=== PATIENT | female | born 1980 | race Caucasian/White ===

== ENCOUNTER 2020-01-09 12:50 | Outpatient (REF) | payer OTHER, SELFPAY ==
--- NOTE | 2020-01-09 13:17 | XR_ITS ---
EXAMINATION: XR SHOULDER, RIGHT CLINICAL INFORMATION: Right shoulder pain COMPARISON: None TECHNIQUE: The right shoulder is imaged in 4 views. FINDINGS: There is no fracture, dislocation, destructive process. There is borderline spur at the greater tuberosity. The glenohumeral joint and acromioclavicular joint are unremarkable. There are no visible rotator cuff calcifications. XR/XR shoulder RT min 2V IMPRESSION: Borderline spurring greater tuberosity. No rotator cuff calcifications.
[2020-01-09 13:46] LABS: Hematocrit 36.8 % (37-47); Hemoglobin 10.8 g/dl (12.0-16.0); Mean Corpuscular HGB Conc 29.3 g/dl (31.0-35.0); Mean Corpuscular Hemoglobin 22.3 pg (27.0-33.0); Mean Platelet Volume 10.6 fL (9.4-12.3); Platelet Count 454 X10*3/uL (160-400); Red Blood Count 4.84 X10*6/uL (4.20-5.50); Red Cell Distribution Width 15.5 % (11.0-16.0)
[2020-01-09 14:08] LABS: Glucose Urine UA NEG (NEG); Leukocyte Esterase Urine NEG (NEG); Nitrite Urine NEG (NEG); Specific Gravity - Urine >= 1.030 (1.005-1.025); Urine Blood 3+ (NEG); Urine Ketones NEG (NEG); Urine Protein NEG (NEG-TRACE)
[2020-01-09 14:10] LABS: Appearance Urine HAZY; Color Urine YELLOW
[2020-01-09 14:23] LABS: Alanine Aminotransferase 35 U/L (0-31); Alkaline Phosphatase 125 U/L (39-117); Anion Gap 13 (12-20); Aspartate Amino Transferase 24 U/L (5-31); Bilirubin Total 0.3 mg/dL (0.0-1.0); Blood Urea Nitrogen 12 mg/dL (9-16); Calcium 9.1 mg/dL (8.4-10.2); Carbon Dioxide 27 mmol/L (22-29); Chloride 105 mmol/L (96-108); Cholesterol 207 mg/dL; Estimated Glomerular Filt Rate > 60; Glucose Random 74 mg/dL (60-115); HDL Cholesterol 46 mg/dL; LDL Cholesterol Calculated 142 mg/dl; Potassium 4.9 mmol/l (3.3-5.1); Sodium 140 mmol/L (135-145); Total Protein 7.3 g/dL (6.5-8.0); Triglycerides 96 mg/dL
[2020-01-09 14:24] LABS: Bacteria Urine 2+ /LPF; Squamous Epithelial Cell Urine 3+ /LPF; WBC Urine 0 /HPF (0-4)
[2020-01-09 14:44] LABS: Thyroid Stimulating Hormone 1.11 uIU/mL (0.32-4.0)
== END 2020-01-09 12:51 | disposition home or self-care (01) ==
LOC: HO.LAB 12:50
PROVIDERS: PCP Internal Medicine; Visit Provider Internal Medicine
DX: Z00.00 Encounter for general adult medical examination without abnormal findings (principal)
CPT/HCPCS: 36415; 73030; 80053; 80061; 81001; 81003; 84443; 85027

== ENCOUNTER 2020-01-23 16:13 | Outpatient (REF) | payer OTHER, SELFPAY | END 2020-01-23 16:14 | disposition home or self-care (01) | LOC: HO.LAB 16:13 | PROVIDERS: PCP Internal Medicine; Visit Provider Internal Medicine | DX: Z20.828 Contact with and (suspected) exposure to other viral communicable diseases (principal) | CPT/HCPCS: C9803; U0003 ==

== ENCOUNTER → 2020-01-29 13:13 | Outpatient (BNVA) | payer OTHER, SELFPAY | PROVIDERS: PCP Internal Medicine; Visit Provider Orthopaedic Surgery | DX: Z76.89 Persons encountering health services in other specified circumstances (principal) ==

== ENCOUNTER 2020-02-06 14:10 | Outpatient (REF) | payer OTHER, SELFPAY | END 2020-02-06 14:11 | disposition home or self-care (01) | LOC: HO.LAB 14:10 | PROVIDERS: Visit Provider Internal Medicine | DX: Z20.828 Contact with and (suspected) exposure to other viral communicable diseases (principal) | CPT/HCPCS: C9803; U0003 ==

== ENCOUNTER 2020-02-18 16:16 | Outpatient (REF) | payer OTHER, SELFPAY ==
--- NOTE | 2020-02-18 | US_ITS ---
EXAMINATION: US RETROPERITONEAL LIMITED (RENAL ONLY) CLINICAL INFORMATION: Microscopic hematuria.. COMPARISON: None TECHNIQUE: Routine grayscale imaging of kidneys was performed. FINDINGS: RIGHT KIDNEY: 10.0 x 5.4 x 5.3 cm (SAG x AP x TRV). The kidney is normal in size, contour, and echogenicity. Renal cortical thickness is normal. No calculi or focal parenchymal lesions. No hydronephrosis. LEFT KIDNEY: 10.6 x 5.0 x 5.7 cm (SAG x AP x TRV). The kidney is normal in size, contour, and echogenicity. Renal cortical thickness is normal. No calculi or focal parenchymal lesions. No hydronephrosis. US/US renal BI IMPRESSION: Unremarkable renal ultrasound..
== END 2020-02-18 16:17 | disposition home or self-care (01) ==
LOC: HO.US 16:16
PROVIDERS: PCP Internal Medicine; Visit Provider Internal Medicine
DX: R31.21 Asymptomatic microscopic hematuria (principal)
CPT/HCPCS: 76775

== ENCOUNTER 2020-11-14 15:23 | Outpatient (REF) | payer OTHER, SELFPAY ==
--- NOTE | ~2020-11-14 | XR_ITS ---
EXAMINATION: XR FOOT, LEFT CLINICAL INFORMATION: Pain in left foot. COMPARISON: None TECHNIQUE: AP, lateral, and oblique views of the left foot. FINDINGS: There is bony prominence of the medial aspect of the navicular bone at site of pain consistent with fused accessory navicular bone. No fracture or other acute abnormality is seen. XR/XR foot LT min 3V IMPRESSION: Bony prominence of the medial aspect of the navicular bone as described.
== END 2020-11-14 15:24 | disposition home or self-care (01) ==
LOC: HO.XRAY 15:23
PROVIDERS: PCP Internal Medicine; Visit Provider Internal Medicine
DX: M79.672 Pain in left foot (principal)
CPT/HCPCS: 73630

== ENCOUNTER 2021-02-17 15:35 | Outpatient (REF) | payer OTHER, SELFPAY ==
--- NOTE | ~2021-02-17 | MM_ITS ---
EXAMINATION: MM SCREENING DIGITAL BREAST TOMOSYNTHESIS, BILATERAL CLINICAL INFORMATION: Screening. Asymptomatic. Age 40. No prior breast imaging. Family history breast cancer. The lifetime risk of breast cancer based on the Tyrer-Cuzick Model is 7%. COMPARISON: None (current study represents initial baseline exam). TECHNIQUE: Digital breast tomosynthesis is performed in both the craniocaudal and mediolateral oblique views along with computer-aided detection (CAD). Synthesized 2D images are generated from the tomosynthesis. Additional left MLO and right CC views are provided. FINDINGS: There are scattered areas of fibroglandular density (ACR BI-RADS breast composition Category b). There is fine fibronodular parenchymal pattern. There is no significant mass or architectural abnormality. Left breast has intramammary node posterior 2:30 position. There is a tiny circumscribed nodule central posterior 9:00 right breast 5 x 4 mm. There are no abnormal calcifications. The axilla and skin contours are unremarkable. MM/MM tomosynthesis screening BI IMPRESSION: No mammographic evidence of malignancy. ASSESSMENT: BI-RADS 2: Benign RECOMMENDATION: Routine annual mammography screening. This patient's information was entered into a reminder system with a target due date for their next mammogram.
== END 2021-02-17 15:36 | disposition home or self-care (01) ==
LOC: HO.MAMMO 15:35
PROVIDERS: Visit Provider Internal Medicine
DX: Z12.31 Encounter for screening mammogram for malignant neoplasm of breast (principal)
CPT/HCPCS: 77063; 77067

== ENCOUNTER 2021-05-12 09:46 | Outpatient (REF) | payer OTHER, SELFPAY ==
--- NOTE | ~2021-05-12 | US_ITS ---
EXAMINATION: US PELVIS CLINICAL INFORMATION: Excessive and frequent menses COMPARISON: None TECHNIQUE: Ultrasound of the pelvis is performed using both transabdominal and transvaginal transducers along with Doppler. Transvaginal imaging is performed due to inadequate visualization transabdominally. Exam is limited due to patient body habitus. FINDINGS: The uterus is anteverted and measures 11.3 x 5.6 x 7.6 cm in dimension. No focal uterine lesion is seen. Endometrial thickness is normal measuring 0.9 cm. There are nabothian cysts in the cervix. The ovaries are seen transabdominally only. The right ovary is normal and measures 3.4 x 1.9 x 2.1 cm. The left ovary is enlarged and measures 5.6 x 3 x 4.6 cm. There is a 2.8 x 3.5 x 2.8 cm simple left ovarian cyst. According to size criteria, no imaging follow-up is indicated. There is no fluid in the pelvis. US/US pelvic complete IMPRESSION: Limited exam. Normal-appearing uterus and right ovary. 2.8 x 3.5 x 2.8 cm simple left ovarian cyst.
== END 2021-05-12 09:47 | disposition home or self-care (01) ==
LOC: HO.HMGCX 09:46
PROVIDERS: PCP Internal Medicine; Visit Provider Advanced Practice Midwife
DX: N92.0 Excessive and frequent menstruation with regular cycle (principal)
CPT/HCPCS: 76856

== ENCOUNTER → 2021-05-15 14:22 | Outpatient (BNVA) | payer OTHER, SELFPAY | PROVIDERS: PCP Internal Medicine; Referring Provider Internal Medicine; Visit Provider Physician Assistant Surgical | DX: Z13.89 Encounter for screening for other disorder (principal) ==

== ENCOUNTER → 2021-05-18 07:47 | Outpatient (BNVA) | payer OTHER, SELFPAY | PROVIDERS: PCP Internal Medicine; Referring Provider Internal Medicine; Visit Provider Physician Assistant | DX: K59.09 Other constipation (principal); K21.9 Gastro-esophageal reflux disease without esophagitis; Z79.899 Other long term (current) drug therapy; Z80.0 Family history of malignant neoplasm of digestive organs | CPT/HCPCS: 99202 ==

== ENCOUNTER 2021-05-22 | Outpatient (REF) | payer OTHER, SELFPAY ==
[2021-05-26 11:12] LABS: H Pylori Breath Test Negative (Negative)
== END 2021-05-22 00:01 | disposition home or self-care (01) ==
LOC: HO.LNP
PROVIDERS: Visit Provider Physician Assistant Surgical
DX: E66.01 Morbid (severe) obesity due to excess calories (principal)
CPT/HCPCS: 83013

== ENCOUNTER → 2021-05-22 12:51 | Outpatient (BNVA) | payer OTHER, SELFPAY | PROVIDERS: PCP Internal Medicine; Referring Provider Internal Medicine; Visit Provider Physician Assistant Surgical | DX: E66.01 Morbid (severe) obesity due to excess calories (principal); Z11.0 Encounter for screening for intestinal infectious diseases; Z68.41 Body mass index [BMI] 40.0-44.9, adult | CPT/HCPCS: 99202; 99211 ==

== ENCOUNTER 2021-05-29 06:47 | Outpatient (REF) | payer OTHER, SELFPAY ==
--- NOTE | ~2021-05-29 | XR_ITS ---
EXAMINATION: XR CHEST CLINICAL INFORMATION: Morbid (severe) obesity due to excess calories. COMPARISON: Chest radiograph 02/15/2017 TECHNIQUE: 2 views of the chest were obtained. FINDINGS: Cardiomediastinal silhouette is normal. The lungs are clear without consolidation, pleural effusion or pneumothorax. Surgical clips in the right upper quadrant. No acute osseous abnormalities. XR/XR chest 2V IMPRESSION: No acute cardiopulmonary process.
--- NOTE | 2021-05-29 06:55 | ECG_ITS ---
Test Reason : PRE OP Blood Pressure : / mmHG Vent. Rate : 063 BPM Atrial Rate : 063 BPM P-R Int : 140 ms QRS Dur : 112 ms QT Int : 422 ms P-R-T Axes : 016 013 046 degrees QTc Int : 431 ms Normal sinus rhythm Minimal voltage criteria for LVH, may be normal variant ( Twan product ) Borderline ECG When compared with ECG of 16-SEP-2015 16:27, No significant change was found Referred By: Russ Villa Electronically Signed By:Obdulio Wick
[2021-05-29 07:18] LABS: MANUAL DIFF FLAG NO
[2021-05-29 08:06] LABS: Basophils Absolute Auto 0.1 X10*3/uL (0.0-0.2); Basophils Percent Auto 0.8 % (0-2); Eosinophils Absolute Auto 0.2 X10*3/uL (0.0-0.4); Eosinophils Percent Auto 3.7 % (0-4); Hematocrit 36.1 % (37.0-47.0); Hemoglobin 10.4 g/dl (12.0-16.0); Imm Gran Abs Auto 0.01 X10*3/uL (0.00-0.03); Imm Gran Pct Auto 0.2 % (0.0-0.4); Lymphocytes Absolute Auto 1.4 X10*3/uL (1.2-4.9); Lymphocytes Percent Auto 23.3 % (20-40); Mean Corpuscular HGB Conc 28.8 g/dl (31.0-35.0); Mean Corpuscular Hemoglobin 19.4 pg (27.0-33.0); Mean Corpuscular Volume 67.4 fL (80.0-98.0); Mean Platelet Volume 10.7 fL (9.4-12.3); Monocytes Absolute Auto 0.5 X10*3/uL (0.1-1.2); Monocytes Percent Auto 8.2 % (2-11); Neutrophils Absolute Auto 3.8 x10*3/uL (2.0-8.3); Neutrophils Percent Auto 63.8 % (45-73); Platelet Count 345 X10*3/uL (160-400); Red Blood Count 5.36 X10*6/uL (4.20-5.50); Red Cell Distribution Width 21.2 % (11.0-16.0)
[2021-05-29 08:13] LABS: Estimated Average Glucose 103 mg/dL; Hemoglobin A1c % 5.2 %
[2021-05-29 08:30] LABS: Anion Gap 13 (12-20); Blood Urea Nitrogen 18 mg/dL (9-16); C Reactive Protein 0.47 mg/dL (< or = 0.50); Calcium 9.4 mg/dL (8.4-10.2); Carbon Dioxide 24 mmol/L (22-29); Chloride 105 mmol/L (96-108); Cholesterol 202 mg/dL; Estimated Glomerular Filt Rate > 60; Glucose Random 96 mg/dL (60-115); HDL Cholesterol 43 mg/dL; Iron 31 mcg/dL (30-160); LDL Cholesterol Calculated 143 mg/dl; Percent Iron Saturation 7 % (15-50); Potassium 4.5 mmol/L (3.3-5.1); Sodium 137 mmol/L (135-145); Total Iron Binding Capacity 441 mcg/dL (228-428); Triglycerides 83 mg/dL; Unsaturated Iron Binding 410 ug/dL
[2021-05-29 08:54] LABS: Ferritin 6 ng/mL (10-250); Insulin 10 uU/mL (2-29); TSH reflex Free T4 0.95 uIU/mL (0.32-4.0); Vitamin D 25-OH Total 22.5 ng/mL (>30)
[2021-05-29 09:09] LABS: Folate 19.1 ng/mL (> or = 4.0); Vitamin B12 526 pg/mL (200-900)
[2021-06-01 13:56] LABS: Calcium (PTHI) 9.3 mg/dL (8.6-10.2); PTHI 51 pg/mL (16-77)
[2021-06-02 16:01] LABS: Zinc 61 mcg/dL (60-130)
[2021-06-03 17:56] LABS: Vitamin A 33 mcg/dL (38-98)
[2021-06-04 17:16] LABS: Vitamin B1 11 nmol/L (8-30)
== END 2021-05-29 06:48 | disposition home or self-care (01) ==
LOC: HO.XRAY 06:47
PROVIDERS: PCP Internal Medicine; Visit Provider Physician Assistant Surgical
DX: Z01.818 Encounter for other preprocedural examination (principal); E66.01 Morbid (severe) obesity due to excess calories
CPT/HCPCS: 36415; 71046; 80048; 80061; 82306; 82607; 82728; 82746; 83036; 83525; 83540; 83970; 84425; 84443; 84590; 84630; 85025; 86140; 93005

== ENCOUNTER → 2021-06-02 14:30 | Outpatient (BNVA) | payer OTHER, SELFPAY | PROVIDERS: PCP Internal Medicine; Visit Provider Counselor Mental Health | DX: F43.20 Adjustment disorder, unspecified (principal); E66.01 Morbid (severe) obesity due to excess calories | CPT/HCPCS: 90791 ==

== ENCOUNTER → 2021-06-12 08:12 | Outpatient (BNVA) | payer OTHER, SELFPAY | PROVIDERS: PCP Internal Medicine; Visit Provider Surgery | DX: Z13.89 Encounter for screening for other disorder (principal) ==

== ENCOUNTER → 2021-06-18 15:36 | Outpatient (BNVA) | payer OTHER, SELFPAY | PROVIDERS: PCP Internal Medicine; Referring Provider Internal Medicine; Visit Provider Dietitian, Registered | DX: E66.9 Obesity, unspecified (principal) | CPT/HCPCS: 97802 ==

== ENCOUNTER → 2021-07-02 08:15 | Outpatient (BNVA) | payer OTHER, SELFPAY | PROVIDERS: PCP Internal Medicine; Referring Provider Surgery; Visit Provider Dietitian, Registered | DX: E66.9 Obesity, unspecified (principal) | CPT/HCPCS: 97803 ==

== ENCOUNTER 2021-07-09 09:59 | Outpatient (REF) | payer OTHER, SELFPAY ==
--- NOTE | ~2021-07-09 | FL_ITS ---
EXAMINATION: XR FLUOROSCOPY UPPER GI WITH AIR CLINICAL INFORMATION: Morbid/severe obesity due to excess calories. COMPARISON: None TECHNIQUE: Routine upper GI contrast study was performed in upright and lying position. FINDINGS: Following oral administration of thick barium and effervescent granules, there is normal propagation of bolus from the oral cavity through the pharynx into the esophagus without any evidence of obstruction, narrowing or stricture. On placing patient supine and prone lying, there is mild gastroesophageal reflux but no hiatal hernia seen. The course, caliber and peristalsis of the stomach, duodenal bulb and the sweep are normal. There is mild flocculation of barium in the antrum of stomach questioning hyperacidity. FLUOROSCOPY TIME: 2.5 minutes DOSE AREA PRODUCT: 38.688 uGy-m2 (microgray-meter squared) FL/FL upper GI w air IMPRESSION: Mild gastroesophageal reflux but no hiatal hernia seen. Suspect mild hyperacidity.
== END 2021-07-09 10:00 | disposition home or self-care (01) ==
LOC: HO.US 09:59
PROVIDERS: Visit Provider Surgery
DX: E66.01 Morbid (severe) obesity due to excess calories (principal)
CPT/HCPCS: 74246

== ENCOUNTER 2021-07-10 13:37 | Outpatient (REF) | payer OTHER, SELFPAY ==
--- NOTE | ~2021-07-10 | US_ITS ---
EXAMINATION: US COMPLETE ABDOMEN WITH LIVER ELASTOGRAPHY CLINICAL INFORMATION: Morbid/severe obesity due to excess calories. COMPARISON: None. TECHNIQUE: Real-time imaging of the abdominal viscera. Noninvasive ultrasound liver fibrosis assessment is performed using Charles ElastPQ point quantification shear wave elastography (2D-SWE) with a C5-2 MHz transducer. Multiple elastography samples are obtained. FINDINGS: PANCREAS: Normal. The visualized pancreatic head and body are normal in appearance. The remainder of the pancreas is obscured from visualization by the overlying bowel gas. ABDOMINAL AORTA: The proximal, middle, and distal aortic segments are normal in caliber. INFERIOR VENA CAVA: Visualized portions are normal. LIVER: Normal. The liver demonstrates normal size, contour and echogenicity. No focal lesion or intrahepatic biliary duct dilatation. The right lobe measures 14.5 cm in length. The left lobe measures 9.8 cm in length. Portal flow is hepatopedal. Shear wave liver elastography median stiffness is 1.50 m/s (reference: normal median stiffness is 1.3 m/s or less). IQR/median stiffness to assess sampling precision is 0.14 (reference: good quality data set is IQR/median stiffness of 0.15 or less). GALLBLADDER: Normal. The gallbladder is physiologically distended without evidence of stones, sludge, polyps, wall thickening or pericholecystic fluid. COMMON BILE DUCT: Normal in caliber measuring 0.3 cm in diameter. RIGHT KIDNEY: Normal. No hydronephrosis. No renal calculi or focal parenchymal lesions. The kidney measures 10.2 cm in maximum dimension. LEFT KIDNEY: Normal. No hydronephrosis. No renal calculi or focal parenchymal lesions. The kidney measures 11.2 cm in maximum dimension. SPLEEN: Normal. The spleen measures 11.6 cm in maximum dimension. FREE FLUID: None. US/US abdomen comp w elastography IMPRESSION: 1. Unremarkable complete abdomen ultrasound. The liver echogenicity is within normal limits. 2. Liver elastography: Median liver stiffness is 1.50 m/s suggestive of cACLD (ruled out). REFERENCE: Society of Radiologists in Ultrasound Liver Stiffness Thresholds (2019): LIVER STIFFNESS THRESHOLDS: *Liver Stiffness equal or less than 1.3 m/s: High probability of being normal. *Liver Stiffness less than 1.7 m/s: In the absence of other known clinical signs, rules out compensated advanced chronic liver disease. *Liver Stiffness 1.7-2.1 m/s: Suggestive of compensated advanced chronic liver disease but need further test for confirmation. *Liver Stiffness over 2.1 m/s: Rules in compensated advanced chronic liver disease. *Liver Stiffness over 2.4 m/s: Suggestive of clinically significant portal hypertension. QUALITY OF DATA SET: *IQR/Median value equal or less than 0.15 implies a quality data set. *IQR/Median value over 0.15 implies a poor quality data set. SIGNIFICANT CHANGE FROM PRIOR EXAM: Significant change if liver stiffness measurement is 10% or greater from prior exam. OTHER CONSIDERATIONS: The stage of liver fibrosis may be overestimated in the setting of acute hepatitis, liver inflammation, elevated liver function tests, hepatic vascular congestion, obstructive cholestasis, non-fasting state, and infiltrative diseases such as amyloidosis and lymphoma. In some patients with NAFLD, the liver stiffness thresholds for compensated advanced chronic liver disease may be lower. In causes other than viral hepatitis and NAFLD, liver stiffness thresholds are not well established.
== END 2021-07-10 13:38 | disposition home or self-care (01) ==
LOC: HO.US 13:37
PROVIDERS: Visit Provider Surgery
DX: Z01.818 Encounter for other preprocedural examination (principal); E66.01 Morbid (severe) obesity due to excess calories
CPT/HCPCS: 76705; 76981

== ENCOUNTER 2021-07-29 14:19 | Outpatient (REF) | payer OTHER, SELFPAY ==
[2021-07-30 02:22] LABS: CT PCR NOT DETECTED (Not Detect.); NG PCR NOT DETECTED (Not Detect.)
[2021-07-30 08:23] LABS: BV Int Neg Control Negative (Negative); BV Int Pos Control Positive (Positive)
== END 2021-07-29 14:20 | disposition home or self-care (01) ==
LOC: HO.LAB 14:19
PROVIDERS: PCP Internal Medicine; Visit Provider Advanced Practice Midwife
DX: N92.0 Excessive and frequent menstruation with regular cycle (principal); R35.0 Frequency of micturition; Z20.2 Contact with and (suspected) exposure to infections with a predominantly sexual mode of transmission
CPT/HCPCS: 58100; 87480; 87491; 87510; 87591; 87660; 88305; 99202

== ENCOUNTER → 2021-09-28 09:24 | Outpatient (BNVA) | payer OTHER, SELFPAY | PROVIDERS: PCP Internal Medicine; Visit Provider Advanced Practice Midwife | DX: Z30.430 Encounter for insertion of intrauterine contraceptive device (principal); Z32.02 Encounter for pregnancy test, result negative | CPT/HCPCS: 58300; 81025; J7298 ==

== ENCOUNTER → 2021-11-18 08:54 | Outpatient (BNVA) | payer OTHER, SELFPAY | PROVIDERS: PCP Internal Medicine; Visit Provider Advanced Practice Midwife | DX: Z30.431 Encounter for routine checking of intrauterine contraceptive device (principal) | CPT/HCPCS: 99212 ==

== ENCOUNTER → 2021-12-24 10:46 | Outpatient (BNVA) | payer OTHER, SELFPAY | PROVIDERS: PCP Internal Medicine; Visit Provider Physician Assistant | DX: K21.9 Gastro-esophageal reflux disease without esophagitis (principal); K59.09 Other constipation; Z80.0 Family history of malignant neoplasm of digestive organs | CPT/HCPCS: 99212 ==

== ENCOUNTER 2022-01-28 06:14 | Day surgery (SDC) | payer OTHER, SELFPAY ==
--- NOTE | 2021-12-23 07:59 | PC.NURSE ---
Patient originally called to see if she could fill in a cancellation spot but patient stated that liquid I had to drink, I got bumps all over my lips and face and body. I started drinking it at 6pm and by 630 they were all over. RN ensured she stopped taking solution and took intervention. Patient stated yes when I saw the bumps I stopped it and threw the rest away and took Benadryl. Offered patient to come in just for EGD and to have colon scheduled for another day, patient preference to reschedule both procedures at same time. Patient given office number to reschedule and advised to tell them about allergic reaction to prep so she can be given something else.
[2022-01-22 10:41] VITALS: BMI 42.9
--- NOTE | 2022-01-27 12:45 | HO.ANESPROP2 ---
Documented by User: Saida Wright NP 01/27/22 12:50 HPI - Anesthesia Eval Consult details Narrative: 41yo F for Upper Endoscopy and Colonoscopy PMFSH Active Problems Active Problems: All Active Problems (Updated 01/22/22 @ 10:41 by Silvana Burroughs RN) Asthma (Acute) Rotator cuff impingement syndrome of right shoulder (Acute) Chronic constipation (Acute) Acid reflux (Acute) Family history of colon cancer (Acute) Obesity (BMI 30-39.9) (Acute) Morbid obesity (Acute) Adjustment disorder, unspecified (Acute) Past Medical History Medical History Anemia Asthma History of kidney stones Hypertension Family History Family History Mother Colon cancer, Onset Age: 45 Father Diabetes Hypertension Son No problems noted. Son Asthma Daughter No problems noted. Surgical History Surgical History History of Hx laparoscopic cholecystectomy Hx of colonoscopy Social History Social History Alcohol intake: never Patient Tobacco Use Status: Never used Tobacco Are you DNR?: No Advance Directives: No Advance Directives Information Provided: Yes (brochure mailed) Advance Directives on File: No Recently lost weight without trying: No Eating poorly because of decreased appetite: No Nutrition Risks: No Nutritional Risk Patient : No Current occupational status: employed Current occupation: [employer] Sexual orientation: Straight/Heterosexual Gender identity: Female Meds Allergies Allergy/AdvReac Type Severity Reaction Status Date / Time polyethylene glycol 3350 Allergy Intermediate Hives Verified 01/28/22 06:25 shellfish derived Allergy Intermediate Swelling Verified 01/28/22 06:25 Home Medications Medication Instructions Recorded Confirmed Last Taken Type albuterol sulfate 90 mcg/actuation 2 puff PO QID PRN Wheezing 05/15/21 01/22/22 Unknown History aerosol inhaler (Ventolin HFA) diclofenac sodium 1 % topical gel 2 g topical BID 05/15/21 01/22/22 Unknown History fluticasone propionate 110 2 puff inhalation BID 05/15/21 01/22/22 Unknown History mcg/actuation HFA aerosol inhaler (Flovent HFA) fluoxetine 10 mg capsule 10 mg PO DAILY 05/18/21 01/22/22 Unknown History naproxen 500 mg tablet 500 mg PO BID PRN Pain 05/18/21 01/22/22 Unknown History levonorgestrel 20 mcg/24 hours (8 intrauterine DAILY 11/18/21 Unknown History yrs) 52 mg intrauterine device (Mirena) Exam Exam Date and Time: January 27, 2022 1245 Height,Weight and Vital Signs: Height 5 ft 1 in Weight 102.965 kg Narrative Narrative: EKG 05/2021 Vent. Rate : 063 BPM ? ? Atrial Rate : 063 BPM ?? P-R Int : 140 ms? QRS Dur : 112 ms ? ? QT Int : 422 ms ? ? ? P-R-T Axes : 016 013 046 degrees ?? QTc Int : 431 ms ? Normal sinus rhythm Minimal voltage criteria for LVH, may be normal variant ( Twan product ) Borderline ECG When compared with ECG of 16-SEP-2015 16:27, No significant change was found Assessment and Plan Assessment Anesthesia Assessment: Chart Reviewed Documented by User: Cintia Solis MD 01/28/22 07:18 [facility] Past Medical History Medical History Anemia Asthma History of kidney stones Hypertension Family History Family History Mother Colon cancer, Onset Age: 45 Father Diabetes Hypertension Son No problems noted. Son Asthma Daughter No problems noted. Family history of problems with anesthesia: No Surgical History Surgical History History of Hx laparoscopic cholecystectomy Hx of colonoscopy History of Problems with Anesthesia: No Social History Social History Alcohol intake: never Patient Tobacco Use Status: Never used Tobacco Are you DNR?: No Advance Directives: No Advance Directives Information Provided: Yes (brochure mailed) Advance Directives on File: No Recently lost weight without trying: No Eating poorly because of decreased appetite: No Nutrition Risks: No Nutritional Risk Patient : No Current occupational status: employed Current occupation: [employer] Sexual orientation: Straight/Heterosexual Gender identity: Female Meds Allergies Allergy/AdvReac Type Severity Reaction Status Date / Time polyethylene glycol 3350 Allergy Intermediate Hives Verified 01/28/22 06:25 shellfish derived Allergy Intermediate Swelling Verified 01/28/22 06:25 Home Medications Medication Instructions Recorded Confirmed Last Taken Type albuterol sulfate 90 mcg/actuation 2 puff PO QID PRN Wheezing 05/15/21 01/22/22 Unknown History aerosol inhaler (Ventolin HFA) diclofenac sodium 1 % topical gel 2 g topical BID 05/15/21 01/22/22 Unknown History fluticasone propionate 110 2 puff inhalation BID 05/15/21 01/22/22 Unknown History mcg/actuation HFA aerosol inhaler (Flovent HFA) fluoxetine 10 mg capsule 10 mg PO DAILY 05/18/21 01/22/22 Unknown History naproxen 500 mg tablet 500 mg PO BID PRN Pain 05/18/21 01/22/22 Unknown History levonorgestrel 20 mcg/24 hours (8 intrauterine DAILY 11/18/21 Unknown History yrs) 52 mg intrauterine device (Mirena) Exam Airway Mallampati Class: II TM Dist: >3cm Neck ROM: Full Loose/Missing/Broken Teeth: Yes and Lower Heart: rr Lungs: cta Assessment and Plan Assessment Anesthesia Assessment: Anesthesia Plan Discussed Final Anesthetic Review Family History of Problems with Anesthesia: No History of Problems with Anesthesia: No ASA Class: II Final Preanesthetic Review: No Changes in Pt Med Stat Patient Risk: Low Procedure Risk: Low Anesthetic Plan Anesthetic Plan: MAC: Disposition: Standard PACU
--- NOTE | 2022-01-28 06:16 | MHC.SHP ---
Pre-Procedural Eval Section A Date of Service: 01/28/22 Section B Chief Complaint: constipation,reflux disease,hx malignant neoplasm Relevant Family History (Specify if Yes): Yes Relevant Social History: None Present Medications: see Short Stay Collaborative assessment Medical History: Significant History (Anemia Asthma History of kidney stones Hypertension) History of Previous Operations: Relevant previous surgery/procedure and date(s) (Hx laparoscopic cholecystectomy Hx of colonoscopy) Allergies: Allergies Allergy/AdvReac Type Severity Reaction Status Date / Time polyethylene glycol 3350 Allergy Intermediate Hives Verified 01/22/22 10:32 shellfish derived Allergy Intermediate Swelling Verified 01/22/22 10:31 Review of Systems Sugical H&P ROS: Negative: Constitution, Cardiovascular, Respiratory, Neurological, Psychiatric, Hem-Onc, Allergic/Immunologic, Gastrointestinal, Genitourinary, Musculoskeletal, Integumentary, Endocrine and Eyes/Ears/Nose/Throat Exam Surgical H&P Exam: Normal: HEENT, Normal: Heart, Normal: Lungs, Normal: Extremities, Normal: Abdomen, Normal: Skin and Normal: Neurological Plan Diagnosis/Plan: Unchanged I have reviewed the history and physical and performed a pertinent physical examination on my patient. No changes have occurred unless specified. Time Spent With Patient Time: Total time managing care of this patient today ____ minutes.
[2022-01-28] MEDS: Lactated Ringers 1,000 ML 100 ML IVCONT (06:40)
[2022-01-28 06:47] VITALS: BP 127/79; PULSE 77; RESP 18; TEMP 36.3; O2SAT 96
[2022-01-28 07:11] LABS: UPreg QC Valid YES; Urine Pregnancy NEGATIVE (NEGATIVE)
--- NOTE | 2022-01-28 08:17 | P.OP_ITS ---
Operative Note Operative Note Date of Service: 01/28/22 Narrative: Operative Information Procedure Description: EGD, Colonoscopy Indication: epigastric pain, FH of CRC in mother, constipation Anesthesia: MAC FLEXIBLE TRANSORAL UPPER GASTROINTESTINAL ENDOSCOPY AND COLONOSCOPY PROCEDURE NOTE UPPER ENDOSCOPY Consent: Indications for the procedure and potential complications of bleeding, perforation, reaction to medications and missed diagnosis were discussed with the patient and informed consent was obtained. Instrument: Olympus GIF H 190 J mid size upper endoscope Monitoring: Vital signs and clinical assessment, continuous EKG monitoring, Pulse oximetry, Carbon Dioxide monitoring and blood pressure monitoring were done throughout the procedure. Procedure: The patient was placed in the left lateral decubitis position and pre-procedure medications were administered and a bite block was placed. The endoscope was inserted into the mouth and advanced under direct vision to the third part of duodenum. A careful inspection was made as the upper endoscope was withdrawn including a retroflexed examination of the proximal stomach; Findings and interventions are described below. Findings: Larynx:normal Esophagus: GE junction at 40 cm, diaphragm hiatus at 40 cm, bogginess and erythema at GEJ, bx taken as well as from distal and proximal esophagus Stomach: mild gastritis. Biopsies were obtained. Grade 2 flap valve on retroflexed examination of the cardia. 10 mm polyp in proximal stomach, looked like a fundic gland polyp removed with cold forceps Duodenum: Erosive duodenitis with nodularity and erythema Intervention: Biopsies as noted above COLONOSCOPY Instrument: Olympus variable stiffness pediatric scope 190L Colonoscopy Monitoring: Vital signs and clinical assessment, continuous EKG monitoring, Pulse oximetry, Carbon Dioxide monitoring and blood pressure monitoring were done throughout the procedure. Colon withdrawal time was 8 minutes. Procedure: The patient was placed in the left lateral decubitis position and pre-procedure medications were administered. After a digital rectal examination of the ano-rectum, the video colonoscope was inserted into the rectum and advanced through the colon to the cecum/TI. The colonoscope was slowly withdrawn in a retrograde panoramic fashion and the colon mucosa was carefully examined including a retroflexed view of the rectum. Findings and interventions are described below. Procedure Difficulty: easy Findings: Terminal Ileum-normal Cecum:normal Ascending Colon: normal Transverse Colon -normal Descending Colon:normal Sigmoid Colon: mild diverticulosis Rectum: Retroflexion with small internal hemorrhoids, grade I Anorectum - normal Colon preparation: [place] Bowel Preparation Scale Right colon; 2 Transverse colon: 2 Left colon; 2 (0 = Unprepared colon segment with mucosa not seen due to solid stool that cannot be cleared. 1 = Portion of mucosa of the colon segment seen, but other areas of the colon segment not well seen due to staining, residual stool and/or opaque liquid. 2 = Minor amount of residual staining, small fragments of stool and/or opaque liquid, but mucosa of colon segment seen well. 3 = Entire mucosa of colon segment seen well with no residual staining, small fragments of stool or opaque liquid) Impression and Post Procedure Diagnosis: Endoscopy Findings: esophagitis erosive duodenitis gastritis Colonoscopy Findings: internal hemorrhoids diverticular disease Plan: Await Pathology results Repeat Colonoscopy in 5 years due to FH of CRC or earlier if clinically indicated, she did well with MOM prep can use same next time High fiber diet leaflet avoid straining at stool, epsom salts and sitz bath, anusol supps or cream check nsaid hx if h pylori pos then treat check if taking PPI -if not may benefit Above findings were reviewed with the patient and relevant handouts were provided if indicated.
[2022-01-28 08:25] VITALS: BP 108/67; PULSE 83; RESP 14; TEMP 36.4; O2SAT 99
[2022-01-28 08:45] VITALS: BP 132/76; PULSE 74; RESP 18; TEMP 36.1; O2SAT 100
== END 2022-01-28 09:54 ==
LOC: HO.SSS 06:14
PROVIDERS: Nurse Practitioner; PCP Internal Medicine; Visit Provider Internal Medicine Gastroenterology
PROC: (CPT 45378; principal; 2022-01-28 07:30)
DX: K59.09 Other constipation (principal); Z80.0 Family history of malignant neoplasm of digestive organs; K57.30 Diverticulosis of large intestine without perforation or abscess without bleeding; K64.0 First degree hemorrhoids; R10.13 Epigastric pain; K21.9 Gastro-esophageal reflux disease without esophagitis; K20.80 Other esophagitis without bleeding; K29.50 Unspecified chronic gastritis without bleeding; K29.80 Duodenitis without bleeding; K31.7 Polyp of stomach and duodenum; K44.9 Diaphragmatic hernia without obstruction or gangrene; D64.9 Anemia, unspecified; I10 Essential (primary) hypertension; J45.909 Unspecified asthma, uncomplicated; E66.01 Morbid (severe) obesity due to excess calories; Z68.41 Body mass index [BMI] 40.0-44.9, adult; Z90.49 Acquired absence of other specified parts of digestive tract; Z87.442 Personal history of urinary calculi; Z88.8 Allergy status to other drugs, medicaments and biological substances
CPT/HCPCS: 45378; 43239; 81025; 88305; 88342

== ENCOUNTER 2022-02-23 14:52 | Outpatient (REF) | payer OTHER, SELFPAY ==
--- NOTE | ~2022-02-23 | MM_ITS ---
EXAMINATION: MM SCREENING DIGITAL BREAST TOMOSYNTHESIS, BILATERAL CLINICAL INFORMATION: Screening. Asymptomatic. The lifetime risk of breast cancer based on the Tyrer-Cuzick Model is 8%. COMPARISON: Mammography: 02/17/2021 (baseline) TECHNIQUE: Digital breast tomosynthesis is performed in both the craniocaudal and mediolateral oblique views along with computer-aided detection (CAD). Synthesized 2D images are generated from the tomosynthesis. Additional bilateral CC views are provided. FINDINGS: There are scattered areas of fibroglandular density (ACR BI-RADS breast composition Category b). Fine fibronodular parenchymal pattern is similar to baseline exam. There is no significant mass. No architectural abnormality or abnormal calcifications. Intramammary nodes again noted posterior upper outer left breast. The axilla and skin contours are unremarkable. MM/MM tomosynthesis screening BI IMPRESSION: No mammographic evidence of malignancy. ASSESSMENT: BI-RADS 2: Benign RECOMMENDATION: Routine annual mammography screening. This patient's information was entered into a reminder system with a target due date for their next mammogram.
== END 2022-02-23 14:53 | disposition home or self-care (01) ==
LOC: HO.MAMMO 14:52
PROVIDERS: PCP Internal Medicine; Visit Provider Internal Medicine
DX: Z12.31 Encounter for screening mammogram for malignant neoplasm of breast (principal)
CPT/HCPCS: 77063; 77067

== ENCOUNTER → 2022-06-10 13:47 | Outpatient (BNVA) | payer OTHER, SELFPAY | PROVIDERS: PCP Internal Medicine; Visit Provider Advanced Practice Midwife | DX: Z13.89 Encounter for screening for other disorder (principal) ==

== ENCOUNTER 2023-04-30 07:55 | Outpatient (REF) | payer OTHER, SELFPAY | END 2023-04-30 07:56 | disposition home or self-care (01) | LOC: HO.MAMMO 07:55 | PROVIDERS: PCP Internal Medicine; Visit Provider Internal Medicine | DX: Z12.31 Encounter for screening mammogram for malignant neoplasm of breast (principal) | CPT/HCPCS: 77063; 77067 ==

== ENCOUNTER → 2023-04-30 08:00 | Outpatient (BNV) | payer OTHER, SELFPAY | PROVIDERS: PCP Internal Medicine; Visit Provider Radiology Diagnostic Radiology | DX: Z12.31 Encounter for screening mammogram for malignant neoplasm of breast (principal) | CPT/HCPCS: 77063; 77067 ==

== ENCOUNTER 2023-05-16 16:27 | Outpatient (REF) | payer OTHER, SELFPAY ==
[2023-05-16 17:54] LABS: Appearance Urine Clear; Color Urine Yellow; Glucose Urine UA Negative (Negative); Leukocyte Esterase Urine Negative (Negative); Nitrite Urine Negative (Negative); PH 6.5 (5.0-9.0); Specific Gravity - Urine 1.025 (1.005-1.025); UMIC TRIGGER UA YES; Urine Blood Trace (Negative); Urine Ketones Negative (Negative); Urine Protein Negative (Neg-Trace)
[2023-05-16 17:58] LABS: Bacteria Urine Trace (None Seen); Hyaline Casts Urine 0-2 /LPF (0-2); WBC Urine 0-5 /HPF (0-5)
== END 2023-05-16 16:28 | disposition home or self-care (01) ==
LOC: HO.CHCLNP 16:27
PROVIDERS: Visit Provider Internal Medicine
DX: R10.9 Unspecified abdominal pain (principal)
CPT/HCPCS: 81001

== ENCOUNTER 2023-05-20 13:53 | Outpatient (REF) | payer OTHER, SELFPAY ==
--- NOTE | ~2023-05-20 | US_ITS ---
EXAMINATION: US RETROPERITONEAL LIMITED (RENAL ONLY) CLINICAL INFORMATION: Left flank pain. COMPARISON: Ultrasound abdomen complete 07/10/2021. Renal ultrasound 02/18/2020. TECHNIQUE: Real-time imaging of the kidneys. FINDINGS: RIGHT KIDNEY: 10.0 x 5.4 x 5.6 cm (SAG x AP x TRV). The kidney is normal in size, contour, and echogenicity. Renal cortical thickness is normal. No calculi or focal parenchymal lesions. No hydronephrosis. LEFT KIDNEY: 10.6 x 5.5 x 5.3 cm (SAG x AP x TRV). The kidney is normal in size, contour, and echogenicity. Renal cortical thickness is normal. No definite calculi or focal parenchymal lesions. There are a few echogenic foci most likely related to vascular interfaces rather than shadowing calculi. No hydronephrosis. US/US renal BI IMPRESSION: Normal-appearing kidneys.
== END 2023-05-20 13:54 | disposition home or self-care (01) ==
LOC: HO.HMGCX 13:53
PROVIDERS: PCP Internal Medicine; Visit Provider Internal Medicine
DX: R10.9 Unspecified abdominal pain (principal); R31.29 Other microscopic hematuria
CPT/HCPCS: 76775

== ENCOUNTER 2023-06-23 09:58 | Outpatient (AMB) | payer OTHER, SELFPAY ==
--- NOTE | 2023-06-23 10:14 | MHC.OFFVIS ---
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 Doing well with no concerns. She tries to eat healthy and stays active with some exercise. Regular monthly menses x4 days currently has a Mirena IUD in place for cycle control, inserted in 2021. Currently is sexually active. She denies vaginal itching and irritation. STI screening offered; she declines. Denies family history of breast or ovarian. FH colon cancer-mom. UTD w/colonscopy. Last pap smear 2021, negative. Mammogram: 2023. COUNTS INCLUDE 234 BEDS AT THE [facility] Medical History (Updated 06/23/23 @ 11:46 by Claudia Alcocer CNM) Hypertension Asthma History of kidney stones Anemia Surgical History (Updated 06/23/23 @ 10:29 by Claudia Alcocer CNM) History of bilateral tubal ligation History of esophagogastroduodenoscopy (EGD) Hx laparoscopic cholecystectomy Hx of colonoscopy History of Family History Mother Colon cancer, Onset Age: 45 Father Diabetes Hypertension Son No problems noted. Son Asthma Daughter No problems noted. 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[employer] Sexual orientation: Straight/Heterosexual Gender identity: Female Female Reproductive History Menstrual Age of Menarche: 9 control method: progestin IUCD Total pregnancies: 3 Full term: 3 Number of Living Children: 3 Date of last pap smear: 04/21/21 (negative) Date of Mammogram: 04/30/23 Review of Systems Const All systems reviewed & are unremarkable except as noted in HPI and below Reports as per HPI Eyes Reports no additional complaints ENT Reports no additional complaints Card Reports no additional complaints Resp Reports no additional complaints GI Reports as per HPI and Reports no additional complaints Reports as per HPI Musc Reports no additional complaints Skin/Breast Reports as per HPI Neuro Reports no additional complaints Psych Reports no additional complaints Endo Reports no additional complaints Mario/Lymph Reports no additional complaints Aller/Immun Reports no additional complaints Physical Exam Vital Signs: Last Vital Signs BP 122/70 06/23/23 10:15 BMI result Body Mass Index 47.2 Const General: cooperative, healthy appearing, no acute distress, well developed and alert Orientation/consciousness: patient oriented x3 HEENT Head: Yes normal to inspection Eyes General: appearance normal, both eyes and all related structures Neck Neck: Yes normal visual inspection Thyroid: Thyroid normal Chest Chest palpation & inspection: normal inspection of the chest and other (no puckering, dimpling, peau de orange, retraction, discharge, masses) Breast/axilla inspection: normal inspection of the breasts Breast/axilla palpation: normal palpation of the breasts Resp Effort & Inspection: normal respiratory effort GI Inspection: Yes normal to inspection Palpation (GI): Soft to palpation Rectal Exam - Female: deferred General: Yes bladder normal to palpation External Female Exam: normal external appearance and normal appearance of the urethra Speculum Exam - Vagina: normal appearance of the vagina, normal palpation, normal vaginal discharge and vaginal bleeding Speculum Exam - Cervix: normal appearance of the cervix and normal palpation Bimanual exam- vagina & uterus: normal bimanual exam, normal palpation, uterine size normal, bladder normal to palpation, normal palpation and non-tender Bimanual Exam- Adnexa, other: no masses OB/external & speculum: vaginal bleeding Skin General skin exam: no rashes or lesions noted Rashes: no rashes Neuro General: patient oriented x3 Cognition (Neuro): normal cognition Extrem General: Yes normal to inspection Psych Attitude: cooperative Thought process: Normal thought process present Assessment & Plan Assessment & Plan (1) Encounter for well woman exam with routine gynecological exam: Code(s): Z01.419 - Encounter for gynecological examination (general) (routine) without abnormal findings Category: Medical (2) IUD strings lost: Code(s): T83.32XA - Displacement of intrauterine contraceptive device, initial encounter Category: Medical Qualifiers: Encounter type: initial encounter Qualified Code(s): T83.32XA - Displacement of intrauterine contraceptive device, initial encounter Plan Discussed: Current recommendations for pap smears per ASCCP guidelines. Breast awareness and periodic breast exams. Maintain a healthy lifestyle including a well balanced diet and routine exercise. Ultrasound to check IUD positioning, follow up in office for results. Mammogram yearly. Colonoscopy >45, or at risk sooner. Patient verbalizes understanding and agrees to the plan of care. She was given opportunity to ask questions and all questions were answered to the best of my ability. RTO in one year for annual slip laster examination. This note is constructed using voice recognition software. While every effort has been made to ensure accuracy, taping supervisor errors may have been included. Orders: Orders US pelvic and transvaginal Today T83.32XA - Displacement of intrauterine contraceptive device, initial encounter Coding Level of Care Code Est Pt Prev Care 40-64y(24397) Diagnoses Encounter for well woman exam with routine gynecological exam Z01.419 Intrauterine contraceptive device threads lost, initial encounter T83.32XA Encounter type: initial encounter
[2023-06-23 10:15] VITALS: BP 122/70; BMI 47.2
== END 2023-06-23 10:47 | disposition home or self-care (01) ==
PROVIDERS: PCP Internal Medicine; Visit Provider Advanced Practice Midwife
DX: Z01.419 Encounter for gynecological examination (general) (routine) without abnormal findings (principal); T83.32XA Displacement of intrauterine contraceptive device, initial encounter
CPT/HCPCS: 99396

== ENCOUNTER → 2023-06-23 09:58 | Outpatient (BNVA) | payer OTHER, SELFPAY | PROVIDERS: PCP Internal Medicine; Visit Provider Advanced Practice Midwife ==

== ENCOUNTER 2023-07-08 15:19 | Outpatient (REF) | payer OTHER, SELFPAY ==
--- NOTE | ~2023-07-08 | US_ITS ---
EXAMINATION: US PELVIS CLINICAL INFORMATION: Displacement of intrauterine contraceptive device, initial encounter Pelvic ultrasound 05/12/2021 COMPARISON: None available. TECHNIQUE: Ultrasound of the pelvis is performed using both transabdominal and transvaginal transducers along with Doppler. Transvaginal imaging is performed due to inadequate visualization transabdominally. Technically difficult study due to body habitus and fluid within the cervix. FINDINGS: Uterus: The uterus is anteverted and measures 10.6 x 5.9 x 6.1 cm. No focal fibroid. The IUD appears in appropriate position. It was technically difficult to visualize due to body habitus and fluid within the cervix. Adnexa: Both ovaries are visualized. There is normal color flow to the adnexa. There is no ovarian torsion. There is no pelvic ascites or fluid collection. Right ovary measures 2.9 x 3.0 x 3.0 cm. Volume 13.7 mL. Left ovary measures 2.3 x 2.3 x 2.0 cm. Volume 5.4 mL. US/US pelvic and transvaginal IMPRESSION: 1. The IUD appears in appropriate position. It was technically difficult to visualize due to body habitus and fluid within the cervix. 2. The right ovary is mildly enlarged with no focal abnormality. 3. Normal left ovary.
== END 2023-07-08 15:20 | disposition home or self-care (01) ==
LOC: HO.US 15:19
PROVIDERS: PCP Internal Medicine; Visit Provider Advanced Practice Midwife
DX: T83.32XA Displacement of intrauterine contraceptive device, initial encounter (principal)
CPT/HCPCS: 76830; 76856

== ENCOUNTER 2023-11-08 13:24 | Outpatient (AMB) | payer OTHER, SELFPAY ==
--- NOTE | 2023-11-08 13:27 | A.OFFVIS_ITS ---
Intake Visit Reasons: ultra sound follow up Bilingual Office Assistant: Bilingual Office Assistant Present Allergies polyethylene glycol 3350 Allergy (Intermediate, Verified 11/08/23 13:27) Hives shellfish derived Allergy (Intermediate, Verified 11/08/23 13:27) Swelling Is last menstrual period known: Yes HPI Comments Details: Patient is here today for a follow up ultrasound results. History of IUD strings missing, and lower right pelvic pain over the last few months. PFSH Medical History (Updated 11/08/23 @ 13:49 by Claudia Alcocer CNM) IUD strings lost Hypertension Asthma History of kidney stones Anemia Surgical History (Updated 06/23/23 @ 10:29 by Claudia Alcocer CNM) History of bilateral tubal ligation History of esophagogastroduodenoscopy (EGD) Hx laparoscopic cholecystectomy Hx of colonoscopy History of Family History Mother Colon cancer, Onset Age: 45 Father Diabetes Hypertension Son No problems noted. Son Asthma Daughter No problems noted. 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[employer] Sexual orientation: Straight/Heterosexual Gender identity: Female Female Reproductive History Menstrual Age of Menarche: 9 Review of Systems Const All systems reviewed & are unremarkable except as noted in HPI and below Endo Reports no additional complaints Physical Exam Const General: cooperative, healthy appearing and no acute distress Psych Appearance: well kempt Attitude: cooperative Thought process: Normal thought process present Results Reviewed Results Reviewed: [address] [address] Ultrasound Report Signed Patient: Roselyn Davis MR#: [id number] : 1980 Acct:[id number] Age/Sex: 43 / F ADM Date: 07/08/23 Loc: HO.US Attending Dr: Claudia Alcocer CNM Ordering Physician: Claudia Alcocer CNM Date of Service: 07/08/23 Procedure(s): US pelvic and transvaginal Accession Number(s): [id number] cc: Logan Polanco MD; Claudia Alcocer CNM~ EXAMINATION: US PELVIS CLINICAL INFORMATION: Displacement of intrauterine contraceptive device, initial encounter Pelvic ultrasound 05/12/2021 COMPARISON: None available. TECHNIQUE: Ultrasound of the pelvis is performed using both transabdominal and transvaginal transducers along with Doppler. Transvaginal imaging is performed due to inadequate visualization transabdominally. Technically difficult study due to body habitus and fluid within the cervix. FINDINGS: Uterus: The uterus is anteverted and measures 10.6 x 5.9 x 6.1 cm. No focal fibroid. The IUD appears in appropriate position. It was technically difficult to visualize due to body habitus and fluid within the cervix. Adnexa: Both ovaries are visualized. There is normal color flow to the adnexa. There is no ovarian torsion. There is no pelvic ascites or fluid collection. Right ovary measures 2.9 x 3.0 x 3.0 cm. Volume 13.7 mL. Left ovary measures 2.3 x 2.3 x 2.0 cm. Volume 5.4 mL. US/US pelvic and transvaginal IMPRESSION: 1. The IUD appears in appropriate position. It was technically difficult to visualize due to body habitus and fluid within the cervix. 2. The right ovary is mildly enlarged with no focal abnormality. 3. Normal left ovary. Dictated By: Ruby Thurston MD Signed By: <Electronically signed by Ruby Thurston MD in OV> 07/21/23 1127 DD/ 1534 TD/TT: Director Cardiac: Assessment & Plan Assessment & Plan (1) Ovarian enlargement, right: Code(s): N83.8 - Other noninflammatory disorders of ovary, fallopian tube and broad ligament Category: Medical (2) Encounter to discuss test results: Code(s): Z71.2 - Person consulting for explanation of examination or test findings Plan Discussed: Ultrasound findings -overall volume of right ovary enlarged, no cyst or mass noted. IUD is properly positioned in the uterus. Plan follow-up in 3 months to recheck the ovary. Counseled regarding pelvic pain, if any increase in pelvic pain on the right side to call the office for a sooner evaluation. All of her questions and concerns were addressed to the best of my ability and shared de cision making. She is agreeable to the plan of care. This note is constructed using voice recognition software. While every effort has been made to ensure accuracy, boilermaker ship errors may have been included. Orders: Orders US pelvic and transvaginal 12/26/23 N83.8 - Other noninflammatory disorders of ovary, fallopian tube and broad ligament Coding Level of Care Code Est Pt Level 3 (30764) Diagnoses Ovarian enlargement, right N83.8 Encounter to discuss test results Z71.2
== END 2023-11-08 14:52 | disposition home or self-care (01) ==
PROVIDERS: PCP Internal Medicine; Visit Provider Advanced Practice Midwife
DX: N83.8 Other noninflammatory disorders of ovary, fallopian tube and broad ligament (principal); Z71.2 Person consulting for explanation of examination or test findings
CPT/HCPCS: 99213

== ENCOUNTER → 2023-11-08 13:25 | Outpatient (BNVA) | payer OTHER, SELFPAY | PROVIDERS: PCP Internal Medicine; Visit Provider Advanced Practice Midwife ==

== ENCOUNTER 2023-12-19 15:19 | Outpatient (REF) | payer OTHER, SELFPAY | END 2023-12-19 15:20 | disposition home or self-care (01) | LOC: HO.US 15:19 | PROVIDERS: PCP Internal Medicine; Visit Provider Advanced Practice Midwife | DX: N83.8 Other noninflammatory disorders of ovary, fallopian tube and broad ligament (principal) | CPT/HCPCS: 76830; 76856 ==

== ENCOUNTER 2024-02-02 10:37 | Outpatient (REF) | payer OTHER, SELFPAY ==
--- NOTE | ~2024-02-02 | XR_ITS ---
EXAMINATION: XR FOOT, RIGHT CLINICAL INFORMATION: Bilateral feet pain COMPARISON: None available. TECHNIQUE: AP, lateral, and oblique views of the right foot. FINDINGS: Minimal degenerative osteoarthritic changes of the first metatarsophalangeal joint. Very small inferior calcaneal spur. The bones and soft tissues are normal. No fracture. Alignment is anatomic. Joint spaces are maintained. XR/XR foot RT min 3V IMPRESSION: 1. No fracture. 2. Mild DJD. 3. Very small inferior calcaneal spur. Electronically signed by: Richard Cevallos MD 02/04/2024 11:56 AM TITA
--- NOTE | ~2024-02-02 | XR_ITS ---
EXAMINATION: XR SHOULDER 2 OR MORE VIEWS LEFT CLINICAL INFORMATION: left shoulder pain COMPARISON: None available at the time of this dictation. TECHNIQUE: AP external rotation, Grashey, scapular Y, and oblique views of the shoulder. Total of 4 views FINDINGS: BONES: There is no fracture or dislocation, no osteolytic or osteoblastic lesion. JOINTS: Glenohumeral joint is properly positioned. AC joint is normal. SOFT TISSUE AND INCLUDED LUNG: Normal. XR/XR shoulder LT min 2V IMPRESSION: 1. Normal radiograph. No fracture or dislocation. 2. Bone alignments are satisfactory. Electronically signed by: Richard Cevallos MD 02/04/2024 11:57 AM TITA
--- NOTE | ~2024-02-02 | XR_ITS ---
EXAMINATION: XR FOOT, LEFT CLINICAL INFORMATION: Bilateral feet pain COMPARISON: None available. TECHNIQUE: AP, lateral, and oblique views of the left foot. FINDINGS: The bones and soft tissues are normal. No fracture. Alignment is anatomic. Joint spaces are maintained. XR/XR foot LT min 3V IMPRESSION: No significant osseous changes to explain patient's pain symptoms. Electronically signed by: Richard Cevallos MD 02/04/2024 12:00 PM TITA
== END 2024-02-02 10:38 | disposition home or self-care (01) ==
LOC: HO.XRAY 10:37
PROVIDERS: PCP Internal Medicine; Visit Provider Internal Medicine
DX: M79.671 Pain in right foot (principal); M79.672 Pain in left foot; M75.22 Bicipital tendinitis, left shoulder
CPT/HCPCS: 73030; 73630

== ENCOUNTER 2024-04-05 14:49 | Outpatient (AMB) | payer OTHER, SELFPAY ==
--- NOTE | 2024-04-05 15:22 | A.OFFVIS_ITS ---
Vital Signs 04/05/24 15:30 Height 5 ft 2 in Weight 258 lb BMI 47.2 Intake Visit Reasons: IUD consult removal/ultra sound follow up Qc Chemist Required: No Information Interpreted: non-clinical & clinical Strategic Planning Analyst: Strategic Planning Analyst Present (JANE Blancas) Accompanied by: Self / Same As Patient Allergies polyethylene glycol 3350 Allergy (Intermediate, Verified 04/05/24 15:23) Hives shellfish derived Allergy (Intermediate, Verified 04/05/24 15:23) Swelling HPI Comments Details: Patient is here today for pelvic ultrasound follow up, and a consult for IUD removal. History of right ovarian enlargement with no focal abnormalities. She reports left lower abdominal pain, has constipation, tries dietary changes to help. Does not see GI, FH colon cancer-mom (late 40's). She is adamant on taking her IUD out today. History of AUB. History of tubal ligation. Currently she reports intermittent pain on the her right and left pelvic areas. [facility] Medical History (Updated 04/05/24 @ 15:55 by Claudia Alcocer CNM) Pelvic pain Hypertension Asthma History of kidney stones Anemia Surgical History (Updated 06/23/23 @ 10:29 by Claudia Alcocer CNM) History of bilateral tubal ligation History of esophagogastroduodenoscopy (EGD) Hx laparoscopic cholecystectomy Hx of colonoscopy History of Family History Mother Colon cancer, Onset Age: 45 Father Diabetes Hypertension Son No problems noted. Son Asthma Daughter No problems noted. 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[employer] Sexual orientation: Straight/Heterosexual Gender identity: Female Female Reproductive History Menstrual Age of Menarche: 9 Review of Systems Const All systems reviewed & are unremarkable except as noted in HPI and below Physical Exam Vital Signs: BMI result Body Mass Index 47.2 Const General: cooperative, healthy appearing and no acute distress Orientation/consciousness: patient oriented x3 GI Inspection: Yes normal to inspection Palpation (GI): Soft to palpation and Other GI palpation findings present (Nontender) Rectal Exam - Female: visual inspection normal General: Yes bladder normal to palpation External Female Exam: normal appearance of the urethra Speculum Exam - Vagina: normal appearance of the vagina, normal palpation and normal vaginal discharge Speculum Exam - Cervix: normal appearance of the cervix, normal palpation and Other cervical findings present (IUD strings at the os) Bimanual exam- vagina & uterus: normal bimanual exam, normal palpation, uterine size normal, bladder normal to palpation, normal palpation, uterine shape normal and non-tender Bimanual Exam- Adnexa, other: normal adnexae Neuro General: patient oriented x3 Office Procedures IUD Insert/Removal Details Details: The patient presents today for a IUD removal. ? She was counseled regarding the removal of her IUD. She was consented for the procedure along with anticipatory guidance for the removal and the consents form was signed. She desires to proceed with the IUD removal. IUD Removal Procedure: The patient was placed in the dorsal lithotomy position. A speculum was inserted vaginally and the cervix and strings were visualized at the os. A ring forcep was utilized, and the patient was asked to give a deep cough while the strings were grasped and gently tugged at the same time, removing the IUD device intact. Minimal bleeding was observed. All of the equipment was removed. The patient tolerated the procedure well and left the office in good condition. IUD Removal Information: You may have light bleeding for several days, tapering off to a brown or pink color. Mild cramping after removal is common. If not allergic, you may take an over the counter mild analgesic for the discomfort, such as Tylenol or Advil (use dosing and frequency per the manufa cturers recommendations). Call the office if you experience: fever (over 100.4), flu like symptoms, abdominal or pelvic pain, foul smelling discharge or heavy bleeding. This note is constructed using voice recognition software. ?While every effort has been made to ensure accuracy, environmental solutions engineer errors may have been included. ? [id number]-IJH Removal Procedure code (CPT) selection complete Results AMB Test Urine AMB Test Urine Negative Last Edit by Mary Castellanos CMA on 15:31 Results Reviewed Results Reviewed: Laboratory Last Values [facility] Clinic Negative 04/05/24 15:[address] [address] Ultrasound Report Signed Patient: Roselyn Davis MR#: [id number] : 1980 Acct:[id number] Age/Sex: 43 / F ADM Date: 12/19/23 Loc: HO.US Attending Dr: Claudia Alcocer CNM Ordering Physician: Claudia Alcocer CNM Date of Service: 12/19/23 Procedure(s): US pelvic and transvaginal Accession Number(s): [id number] cc: Logan Polanco MD; Claudia Alcocer CNM~ EXAMINATION:US PELVIS TRANSABDOMINAL AND TRANSVAGINAL CLINICAL INFORMATION: N83.8 - Other noninflammatory disorders of ovary, fallopian tube and bro... COMPARISON: June 2023 LMP: Not reported FINDINGS: UTERUS: The uterus is anteverted. Size: 10.6 x 4.7 x 4.1 cm. Uterine mass: There is no uterine mass. Cervix: Grossly unremarkable. Endometrium: Could not be visualized obscured. Endometrium is in place properly positioned. ADNEXA: Normal Right ovary: Not visualized might be atrophic or obscured by bowel gas. Left ovary: Normal in size. Doppler exam: Normal Doppler flow identified in both ovaries. FREE FLUID: Trace amount of free fluid. OTHER FINDINGS: None US/US pelvic and transvaginal IMPRESSION: 1. Exam somewhat limited due to patient's body habitus. 2. Right ovary not visualized might be atrophic or obscured by bowel gas. 3. No ultrasound evidence of uterine mass or fibroid. 4. IUD in place properly positioned. Endometrium not seen obscured. 5. Left ovary unremarkable on today's exam. Electronically signed by: Richard Cevallos MD 02/11/2024 02:31 PM [facility] Dictated By: Richard Cevallos MD Signed By: <Electronically signed by Richard Cevallos MD in OV> 02/11/24 1431 DD/ 1530 TD/TT: 12/19/23 1541 Accountant Helper: Assessment & Plan Assessment & Plan (1) Ovarian enlargement, right: Code(s): N83.8 - Other noninflammatory disorders of ovary, fallopian tube and broad ligament Category: Medical Plan: Discussed: Ultrasound findings right ovary was not viewed, plan repeat pelvic ultrasound to assess anatomy, follow up in person for test results. If any worsening pain to notify the office if severe pain, to go right to the emergency room. Monitor menses, they may return and become abnormal requiring her to consider other options for cycle control. The patient expressed understanding and agreement with the plan of care. All of her questions and concerns were addressed to the best of my ability. Total time I personally spent on visit and management today: ?15 minutes. Time spent included review of pertinent office notes in the electronic health record; review of laboratory and imaging results; review of personal family medical history; discussing diagnosis and plan of care with the patient; documenting the encounter in the EMR. This note is constructed using voice recognition software. While every effort has been made to ensure accuracy, environmental solutions engineer errors may have been included. (2) Pelvic pain: Code(s): R10.2 - Pelvic and perineal pain Category: Medical Plan: BV panel taken. Discussed various causes for pelvic pain to include GI, due to her history of constipation and colon cancer I strongly recommend she call her primary care for a follow up and to be seen by a GI provider. Orders: Orders AMB HCG Urine Test Today Z32.02 - Encounter for test, result negative US pelvic and transvaginal Today N83.8 - Other noninflammatory disorders of ovary, fallopian tube and broad ligament, R10.2 - Pelvic and perineal pain Coding Level of Care Code Est Pt Level 2 (15582) Procedure Only Diagnoses Ovarian enlargement, right N83.8 Pelvic pain R10.2 CPT Codes Details - CPT: 80750-CDG Removal ([id number])
[2024-04-05 15:30] VITALS: BMI 47.2
--- OUTSIDE RECORDS SUMMARY | 2024-04-05 15:58 | XMS_ITS | Encounter Summary ---
Author Organization [employer] Address [address] [place] [address] Care Team Providers Care Proration Clerk Name Role Phone Logan Polanco MD Primary Care Provider [phone] Encounter Details Date Type Department Care Team ([facility] st Contact Info) Description 02/06/2024 Orders Only [facility] [address] [place] [address] Logan Polanco MD [address] [place] [address] Social History Tobacco Use Types Packs/Day Years Used Date Smoking Tobacco: Never Passive Smoke Exposure: Never Smokeless Tobacco: Never Alcohol Use Standard Drinks/Week Comments Never 0 (1 standard drink = 0.6 oz pur e alcohol) Housing Stability Answer Date Recorded What is your housing situation today? Not on crissy e 02/02/[address] you li ve. Do you have problems with any of the following? None of the above 02/02/2024 Food Insecurity Answer Date Recorded Within the past 12 months, y ou worried that your food would run out before you got money to buy more: Never True 02/02/2024 Within the past 12 months,th e food you bought just didn't last and you didn't have enough money to get more: Never True Transportation Answer Date Recorded In the past 12 months, has l ack of transportation kept you from medical appts, meetings, work or from getting things needed for daily living? No 02/02/2024 Utilities Answer Date Recorded In the past 12 months, has t he electric, gas, oil or water company threatened to shut off services in your home? No 02/02/2024 Internet Access Answer Date Recorded Internet Access Q1 Yes 02/02/2024 Internet Access Q2 Not on file 02/02/2024 Comments Unknown Sex and Gender Information Value Date Recorded Sex Assigned at Female 12/14/2021 10:19 AM EDT Legal Sex Female 10:19 AM EDT Gender Identity Female 12/14/2021 10:19 AM EDT Sexual Orientation Choose not to disclose 2021 10:19 AM EDT documented as of this encounter Plan of Treatment Not on file documented as of this encounter Visit Diagnoses Not on filedocumented in this encounter Care Teams Proration Clerk Relationship Specialty Start Date End Date Logan Polanco MD [address] [place] [id number] PCP - General Internal Medicine 02/14/18 documented as of this encounter
--- OUTSIDE RECORDS SUMMARY | 2024-04-05 15:58 | XMS_ITS | Clinical Summary ---
Author Organization [employer] Address [address] [place] [address] 7[address] [place] [address] Care Team Providers Care International Specialist Name Role Phone Logan Polanco MD Primary Care Provider [phone] Allergies Active Allergy Reactions Criticality Noted Date Comments Shrimp Flavor Agent (Non-Screening) Rash Low 02/18/2022 All shrimp produce Medications Mirena, 52 MG, 20 MCG/DAY intrauterine device 2 Active Flovent HFA 110 MCG/ACT inhaler TAKE 2 PUFF BY INHALATION ROUTE 2 TIMES EVERY DAY 2 Active FLUoxetine (PROzac) 10 MG capsule Take 10 mg by mouth in the morning. 2 Active [facility] Gentle Laxative 5 MG EC tablet TAKE 2 TABLETS BY MOUTH ONCE DIRECTED PRIOR TO COLONOSCOPY 2 Active Ventolin HFA 108 (90 Base) MCG/ACT inhaler INHALE 2 PUFFS BY MOUTH 4 TIMES A DAY NEEDED 2 Active cholecalciferol (Vitamin D-3) 125 MCG (5000 UT) capsule Take 125 mcg by mouth in the morning. 2 Active ferrous sulfate 325 (65 Fe) MG tablet TAKE 1 TABLET BY MOUTH EVERY OTHER DAY 45 tablet 1 3 Active mupirocin (Bactroban) 2 % ointment Apply topically 3 times daily. 60 g 4 Active econazole nitrate 1 % cream Apply topically in the morning. 60 g 4 Active diclofenac (Cataflam) 50 MG tablet Take 1 tablet (50 mg) by mouth 3 times daily. 90 tablet 4 Active Diclofenac Sodium 1 % gelIndications:B iceps tendinitis of left upper extremity To apply to the affected area 4 times a day 100 g 1 4 Active hydroCHLOROthiaz reynaldo 12.5 MG tabletIndication s:Essential hypertension Take 1 tablet (12.5 mg) by mouth Once per day. 30 tablet 11 4 02/02/20 25 Active Tirzepatide-Weig ht Management (Zepbound) 2.5 MG/0.5ML solution auto-injectorInd ications:Class 3 severe obesity due to excess calories with serious comorbidity and body mass index (BMI) of 45.0 to 49.9 in adult ([facility]) Inject 0.5 mL (2.5 mg) under the skin 1 (one) time per week. 2 mL 1 4 Active Active Problems Problem Noted Date Diagnosed Date Intertrigo 03/14/2023 Assessment & Plan (03/14/2023 3:29 PM EST): Patient presented visit with concerns of intertrigo will be provided with ointments and creams to apply on affected area. Advised to use different OTC methods, such as: gauzes and baby powder, to maintain the area clean and dry. Recommended to contact office if symptoms don't improve. Bony prominence 02/19/2022 Pain in both feet 02/19/2022 Assessment & Plan (11/25/2023 3:05 PM EDT): Pt came in with similar concerns as in February visit. Pt was recommended to do her X-rays and f/u with Milk Truck Driver. Recommended follow up with PCP. 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 She is tearful and reporting she has problems standing for prolonged periods of time given her bilateral feet pain more prominent in her R foot. Will need to get records from podiatry, please referral to new charter school executive director. Recommended followup with PCP. Sent X rays and given letter for work. Also rx NSAIDs Essential hypertension 02/18/2022 Assessment & Plan (03/15/2023 11:02 AM EST): Elevated diastolic BP, recommended f/up PCP Microcytic anemia 01/16/2020 Microscopic hematuria 01/16/2020 Mild intermittent asthma 02/09/2017 Encounters Date Type Department Care Team Description 02/09/2024 Telephone [facility] [address] [place] [address] Logan Polanco MD 02/06/2024 Orders Only [facility] [address], [place] [id number] Logan Polanco MD 02/03/2024 Telephone [facility] [employer] [address] [place] [address] Logan Polanco MD 02/02/2024 9:15 AM EST Office Visit [facility] [address] [place] [address] Logan Polanco MD Pain in both feet (Primary Dx); Biceps tendinitis of left upper extremity; Essential hypertension; Dietary counseling; Exercise counseling; Class 3 severe obesity due to excess calories with serious comorbidity and body mass index (BMI) of 45.0 to 49.9 in adult ([facility]) 02/02/2024 Travel from Last 3 Months Immunizations Name Administration Dates Next Due Influenza injectable quadrivalent preservative f ree 02/09/2017 Influenza, Split (incl. purified surface antigen ) 01/26/2013 Moderna Covid-19 Vaccine 04/30/2020 Tdap 06/16/2012 Social History Tobacco Use Types Packs/Day Years Used Date Smoking Tobacco: Never Passive Smoke Exposure: Never Smokeless Tobacco: Never Tobacco Cessation:Counseling Given: Not Answered Alcohol Use Standard Drinks/Week Comments Never 0 [...] the past 12 months, has t he [employer], gas, oil or water company threatened to [...] not to disclose 2021 10:19 AM EDT Last Filed Vital Signs Vital Sign Reading Time Taken Comments Blood Pressure 144/94 02/02/2024 9:20 AM EST Pulse 77 02/02/2024 9:19 AM EST Temperature 36.1 ??C (97 ??F) 02/02/2024 9:19 AM EST Respiratory Rate 22 02/02/2024 9:19 AM EST Oxygen Saturation 97% 02/02/2024 9:19 AM EST Inhaled Oxygen Concentration - - Weight 116 kg (256 lb 8 oz) 02/02/2024 9:[address] Height 155 cm (5' 1.02 ) 02/02/2024 9:19 AM EST Body Mass Index 48.43 02/02/2024 9:19 AM EST Plan of Treatment Health Maintenance Due Date Last Done Comments CT Colonography 1979 Colonoscopy 1979 Colorectal Cancer Screening 1979 Depression Screening 1979 FIT DNA/Cologuard 1979 FIT 1979 FOBT 1979 HIV Screening 1979 Sigmoidoscopy 1979 Family Planning (PISQ) 1994 Hepatitis C Screening 1997 Hepatitis B Vaccines (1 of 3 - 19+ 3-dose series) 1998 Pneumococcal Vaccine: Pediatrics (0 to 5 Years) and At-Risk Patients (6 to 49) Years) (1 of 2 - PCV) 1998 DTaP/Tdap/Td Vaccines (2 - T d or Tdap) 06/16/2022 06/16/2012 SDOH Screening 09/21/2023 09/20/2022 COVID-19 Vaccine (4 - 2023-2 5 season) 2023 02/17/2021, 05/30/2020, 04/30/2020 Influenza Vaccine (#1) 2023 7, 01/26/2013 Pap Smear 04/21/2024 04/21/2021 Alcohol/Substance Use Screening 02/01/2025 02/02/2024 Tobacco Screening 02/01/2025 02/02/2024 Mammogram 04/29/2025 04/30/2023, 02/23/2022, 02/17/2021 Cervical Cancer Screening 04/21/2026 HPV/Cotest 04/21/2026 04/21/2021 Lipid Panel 05/29/2026 05/29/2021, 05/29/2021 Zoster Vaccines (1 of 2) 2029 RSV Patients and Patients Aged 60 years or older (1 - 1-dose 75+ series) 2054 HIB Vaccines Aged Out No longer eligi ble based on patient's age to complete this topic HPV Vaccines Aged Out No longer eligi ble based on patient's age to complete this topic Hepatitis A Vaccines Aged Out No long er eligible based on patient's age to complete this topic IPV Vaccines Aged Out No longer eligi ble based on patient's age to complete this topic Meningococcal Vaccine Aged Out No della darwin eligible based on patient's age to complete this topic RSV under 20 months Aged Out No longe r eligible based on patient's age to complete this topic Rotavirus Vaccines Aged Out No longer eligible based on patient's age to complete this topic Procedures Procedure Name Priority Date/Time Associated Diagnosis Comments XR FOOT 3+ VIEWS LEFT Routine 02/02/2024 10:43 AM EST Pain in both feet XR SHOULDER 2+ VIEWS LEFT Routine 02/02/2024 10:43 AM EST Biceps tendinitis of left upper extremity XR FOOT 3+ VIEWS RIGHT Routine 10:42 AM EST BI MAMMOGRAM SCREENING TOMOSYNTHESIS BILATERAL Routine 04/30/2023 8:10 AM EDT [facility] HISTORICAL LIPID PANEL Routine 05/29/2021 7:16 AM EDT THINPREP IMAGING PAP AND HPV MRNA E6/E7 WITH REFLEX TO HPV 16,18/45 Routine 04/21/2021 3:57 PM EST from Last 3 Months or Most Recently Relevant to Health Maintenance Results * XR Foot 3+ Views Left (02/02/2024 10:43 AM EST) Anatomical Region Laterality Modality Lower Extremities, Foot Left Radiogra phic Imaging 02/02/2024 10:4 3 AM EST Narrative 02/04/2024 12:02 PM EST ? [facility] ?[address] ?[place] [address] ?XRay Report ? Signed ? Patient: Roselyn Davis ?MR#: [id number] ?? 7 ? : 1980 ?Acct:[id number] ? Age/Sex: 43 / F ?ADM Date: 02/02/24 ? Loc: HO.XRAY ? Attending Dr: Logan Polanco MD ? Ordering Physician: Logan Polanco MD ?? Date of Service: 02/02/24 ?? Procedure(s): XR foot LT min 3V ?? Accession Number(s): [id number] ? cc: Logan Polanco MD ? EXAMINATION: ?? XR FOOT, LEFT ? CLINICAL INFORMATION: ?? Bilateral feet pain ? COMPARISON: ?? None available. ? TECHNIQUE: ?? AP, lateral, and oblique views of the left foot. ? FINDINGS: ?? The bones and soft tissues are normal. No fracture. Alignment is ?? anatomic. Joint spaces are maintained. ? XR/XR foot LT min 3V ?? IMPRESSION: ?? No significant osseous changes to explain patient's pain symptoms. ? Electronically signed by: ??Richard Cevallos MD ??02/04/2024 12:00 PM EST ? Dictated By: ?Richard Cevallos MD ? Signed By: ?<Electronically signed by Richard Cevallos MD in OV> ?02/04/24 1200 ? DD/ 1043 ? TD/TT: 02/02/24 1115 ? Automotive Brake Technician: HS ? Procedure Note Donkristinaponcejaketer, Image - 02/04/2024 [place] [address] XRay Report Signed Patient: Roselyn DavisMR#: [id number] 7 : 1980Acct:[id number] Age/Sex: 43 / FADM Date: 02/02/24 Loc: [facility] Attending Dr: Logan Polanco MD Ordering Physician: Logan Polanco MD Date of Service: 02/02/24 Procedure(s): XR foot LT min 3V Accession Number(s): [id number] cc: Logan Polanco MD EXAMINATION: XR FOOT, LEFT CLINICAL INFORMATION: Bilateral feet pain COMPARISON: None available. TECHNIQUE: AP, lateral, and oblique views of the left foot. FINDINGS: The bones and soft tissues are normal. No fracture. Alignment is anatomic. Joint spaces are maintained. XR/XR foot LT min 3V IMPRESSION: No significant osseous changes to explain patient's pain symptoms. Electronically signed by: Richard Cevallos MD 02/04/2024 12:00 PM [facility] Dictated By: Richard Cevallos MD Signed By: <Electronically signed by Richard Cevallos MD in OV> 02/04/24 1200 DD/ 1043 TD/TT: 02/02/24 1115 Automotive Brake Technician: HS us Logan Polanco MD IMG XR PROCEDURES Edited Re sult - Final * XR Shoulder 2+ Views Left (02/02/2024 10:43 AM EST) Anatomical Region Laterality Modality Upper Extremities, Shoulder Left Radi ographic Imaging 02/02/2024 10:4 3 AM EST Narrative 02/04/2024 12:00 PM EST ? [facility] ?[address] ?[place] [address] ?XRay Report ? Signed ? Patient: Mattey,Roselyn ?MR#: [id number] ?? 7 ? : 1980 ?Acct:[id number] ? Age/Sex: 43 / F ?ADM Date: 02/02/24 ? Loc: HO.XRAY ? Attending Dr: Logan Polanco MD ? Ordering Physician: Logan Polanco MD ?? Date of Service: 02/02/24 ?? Procedure(s): XR shoulder LT min 2V ?? Accession Number(s): [id number] ? cc: Logan Polanco MD ? EXAMINATION: ?? XR SHOULDER 2 OR MORE VIEWS LEFT ? CLINICAL INFORMATION: left shoulder pain ? COMPARISON: ?? None available at the time of this dictation. ? TECHNIQUE: ?? AP external rotation, Grashey, scapular Y, and oblique views of the ?? shoulder. Total of 4 views ? FINDINGS: ? BONES: There is no fracture or dislocation, no osteolytic or ?? osteoblastic lesion. ? JOINTS: Glenohumeral joint is properly positioned. AC joint is normal. ? SOFT TISSUE AND INCLUDED LUNG: Normal. ? XR/XR shoulder LT min 2V ?? IMPRESSION: ? 1. ??Normal radiograph. No fracture or dislocation. ? 2. ??Bone alignments are satisfactory. ? Electronically signed by: ??Richard Cevallos MD ??02/04/2024 11:57 AM EST ?? RP ? Dictated By: ?Richard Cevallos MD ? Signed By: ?<Electronically signed by Richard Cevallos MD in OV> ?02/04/24 1157 ? DD/ 1043 ? TD/TT: 02/02/24 1115 ? Automotive Brake Technician: HS ? Procedure Note Donotuseinterpreter, Image - 02/04/[address] [address] XRay Report Signed Patient: Roselyn DavisMR#: [id number] 7 : 1980Acct:[id number] Age/Sex: 43 / FADM Date: 02/02/24 Loc: HO.XRAY Attending Dr: Logan Polanco MD Ordering Physician: Logan Polanco MD Date of Service: 02/02/24 Procedure(s): XR shoulder LT min 2V Accession Number(s): [id number] cc: Logan Polanco MD EXAMINATION: XR SHOULDER 2 OR MORE VIEWS LEFT CLINICAL INFORMATION: left shoulder pain COMPARISON: None available at the time of this dictation. TECHNIQUE: AP external rotation, Grashey, scapular Y, and oblique views of the shoulder. Total of 4 views FINDINGS: BONES: There is no fracture or dislocation, no osteolytic or osteoblastic lesion. JOINTS: Glenohumeral joint is properly positioned. AC joint is normal. SOFT TISSUE AND INCLUDED LUNG: Normal. XR/XR shoulder LT min 2V IMPRESSION: 1. Normal radiograph. No fracture or dislocation. 2. Bone alignments are satisfactory. Electronically signed by: Richard Cevallos MD 02/04/2024 11:57 AM EST Dictated By: Richard Cevallos MD Signed By: <Electronically signed by Richard Cevallos MD in OV> 02/04/24 1157 DD/ 1043 TD/TT: 02/02/24 1115 Automotive Brake Technician: HS us Logan Polanco MD IMG XR PROCEDURES Edited Re sult - Final * XR Foot 3+ Views Right (02/02/2024 10:42 AM EST) Anatomical Region Laterality Modality Lower Extremities, Foot Right Radiogra phic Imaging 02/02/2024 10:4 2 AM EST Narrative 02/04/2024 11:59 AM EST ? [facility] ?[address] ?[place] [address] ?XRay Report ? Signed ? Patient: Mattey,Roselyn ?MR#: [id number] ?? 7 ? : 1980 ?Acct:[id number] ? Age/Sex: 43 / F ?ADM Date: 02/02/24 ? Loc: HO.XRAY ? Attending Dr: Logan Polanco MD ? Ordering Physician: Logan Polanco MD ?? Date of Service: 02/02/24 ?? Procedure(s): XR foot RT min 3V ?? Accession Number(s): [id number] ? cc: Logan Polanco MD ? EXAMINATION: ?? XR FOOT, RIGHT ? CLINICAL INFORMATION: ?? Bilateral feet pain ? COMPARISON: ?? None available. ? TECHNIQUE: ?? AP, lateral, and oblique views of the right foot. ? FINDINGS: Minimal degenerative osteoarthritic changes of the first ?? metatarsophalangeal joint. Very small inferior calcaneal spur. ?? The bones and soft tissues are normal. No fracture. Alignment is ?? anatomic. Joint spaces are maintained. ? XR/XR foot RT min 3V ?? IMPRESSION: ? 1. ??No fracture. ? 2. ??Mild DJD. ? 3. ??Very small inferior calcaneal spur. ? Electronically signed by: ??Richard Cevallos MD ??02/04/2024 11:56 AM EST ? Dictated By: ?Richard Cevallos MD ? Signed By: ?<Electronically signed by Richadr Cevallos MD in OV> ?02/04/24 1156 ? DD/ 1042 ? TD/TT: 02/02/24 1115 ? Automotive Brake Technician: HS ? Procedure Note Jane Alfaro - 02/04/2024 [facility] [address] [place] [address] XRay Report Signed Patient: Benjamín DavisfedeMR#: [id number] 7 : 1980Acct:[id number] Age/Sex: 43 / FADM Date: 02/02/24 Loc: [facility]CR[facility] Attending Dr: Logan Polanco MD Ordering Physician: Logan Polanco MD Date of Service: 02/02/24 Procedure(s): XR foot RT min 3V Accession Number(s): [id number] cc: Logan Polanco MD EXAMINATION: XR FOOT, RIGHT CLINICAL INFORMATION: Bilateral feet pain COMPARISON: None available. TECHNIQUE: AP, lateral, and oblique views of the right foot. FINDINGS: Minimal degenerative osteoarthritic changes of the first metatarsophalangeal joint. Very small inferior calcaneal spur. The bones and soft tissues are normal. No fracture. Alignment is anatomic. Joint spaces are maintained. XR/XR foot RT min 3V IMPRESSION: 1. No fracture. 2. Mild DJD. 3. Very small inferior calcaneal spur. Electronically signed by: Richard Cevallos MD 02/04/2024 11:56 AM EST Dictated By: Richard Cevallos MD Signed By: <Electronically signed by Richard Cevallos MD in OV> 02/04/24 1156 DD/ 1042 TD/TT: 02/02/24 1115 Automotive Brake Technician: us Logan Polanco MD IMG XR PROCEDURES Edited Re sult - Final * BI Mammogram Screening Tomosynthesis Bilateral (04/30/2023 8:10 AM EDT) Anatomical Region Laterality Modality Breast Bilateral Mammography 04/30/2023 8:10 AM EDT Narrative 05/13/2023 4:09 PM EDT ? [facility] ? [address] ?[place] [address] ? Mammography Report ? Signed ? Patient: Mattey,Roselyn ?MR#: [id number] ?? 7 ? : 1980 ?Acct:[id number] ? Age/Sex: 43 / F ?ADM Date: 03/16/24 ? Loc: HO.MAMMO ? Attending Dr: Logan Polanco MD ? Ordering Physician: Logan Polanco MD ?Results: 1 ?? Negative ? Date of Service: 04/30/23 ?Follow Up: 1 Year From Orig ?? inal Mammogram ? Procedure(s): MM tomosynthesis screening BI ?? Accession Number(s): [id number] ? cc: Logan Polanco MD ? EXAMINATION: ?? MM SCREENING DIGITAL BREAST TOMOSYNTHESIS, BILATERAL ? CLINICAL INFORMATION: ? Screening. Asymptomatic. ? COMPARISON: ?? Mammography: This study is compared with prior exams dating back to ?? 2021. ? TECHNIQUE: ?? Digital breast tomosynthesis is performed in both the craniocaudal and ?? mediolateral oblique views along with computer-aided detection (CAD). ?? Synthesized 2D images are generated from the tomosynthesis. ? FINDINGS: ?? There are scattered areas of fibroglandular density (ACR BI-RADS breast ?? composition Category b). ? There are no significant masses, abnormal calcifications, or other ?? abnormalities. ? MM/MM tomosynthesis screening BI ?? IMPRESSION: ?? No mammographic evidence of malignancy. ? ASSESSMENT: ? BI-RADS BI-RADS 1 - Negative ? RECOMMENDATION: ?? Routine annual mammography screening. ? 1 year F/U ? This examination should not preclude the clinical evaluation of a ?? suspicious palpable abnormality. ? This patient's information was entered into a reminder system with a ?? target due date for their next mammogram. ? Dictated By: ?Rosamaria Toussaint MD ? Signed By: ?<Electronically signed by Rosamaria Toussaint MD in OV> ? 05/12/24 1605 ? DD/ 0810 ? TD/TT: ? Automotive Brake Technician: ? Procedure Note Donotuseinterpreter, Image - 05/13/2023 [facility] [address] [place], [place] [address] Mammography Report Signed Patient: Roselyn DavisMR#: [id number] 7 : 1980Acct:[id number] Age/Sex: 43 / FADM Date: 04/30/23 Loc: HO.MAMMO Attending Dr: Logan Polanco MD Ordering Physician: Logan Polanco MDResults: 1 Negative Date of Service: 04/30/23Follow Up: 1 Year From Orig inal Mammogram Procedure(s): MM tomosynthesis screening BI Accession Number(s): [id number] cc: Logan Polanco MD EXAMINATION: MM SCREENING DIGITAL BREAST TOMOSYNTHESIS, BILATERAL CLINICAL INFORMATION: Screening. Asymptomatic. COMPARISON: Mammography: This study is compared with prior exams dating back to 2021. TECHNIQUE: Digital breast tomosynthesis is performed in both the craniocaudal and mediolateral oblique views along with computer-aided detection (CAD). Synthesized 2D images are generated from the tomosynthesis. FINDINGS: There are scattered areas of fibroglandular density (ACR BI-RADS breast composition Category b). There are no significant masses, abnormal calcifications, or other abnormalities. MM/MM tomosynthesis screening BI IMPRESSION: No mammographic evidence of malignancy. ASSESSMENT: BI-RADS BI-RADS 1 - Negative RECOMMENDATION: Routine annual mammography screening. 1 year F/U This examination should not preclude the clinical evaluation of a suspicious palpable abnormality. This patient's information was entered into a reminder system with a target due date for their next mammogram. Dictated By: Rosamaria Toussaint MD Signed By: <Electronically signed by Rosamaria Toussaint MD in OV> 05/13/23 1605 DD/ 0810 TD/TT: Automotive Brake Technician: us Logan Polanco MD IMG BI PROCEDURES Edited Re sult - Final * (ABNORMAL) LIPID PANEL (05/29/2021 7:16 AM EDT) Cholesterol 202 mg/dL [facility] Comment: Desirable Cholesterol: ?less than 200 mg/dL Borderline High Cholesterol: ??200-239 mg/dL High Cholesterol: ? greater than 239 mg/dL HDL Cholesterol 43 mg/dL [facility] Comment: Desirable HDL: ??greater than 40 mg/dL ?? Note: This HDL assay may give artificially ? low results in patients with liver disease. LDL Cholesterol Calculated 143 mg/dl [facility] Comment: Desirable LDL: ? less than 100 mg/dL Near Optimal/Above Optimal LDL: ??110-129 mg/dL Borderline High LDL: ? 130-159 mg/dL High LDL: ?160-189 mg/dL Very High LDL: ? greater than or equal to ?190 mg/dL Triglycerides 83 mg/dL [facility] Comment: Desirable Triglyceride: ? less than 150 mg/dL Borderline High Triglyceride ??150-199 mg/dL High Triglyceride: ?200-499 mg/dL Very High Triglyceride: ? greater than or equal to ? 5OO mg/dL Iron 31 30 - 160 mcg/dL [facility] Percent Iron Saturation 7(L) 15 - 50 % [facility] Total Iron Binding Capacity 441(H) 228 - 428 mcg/dL [facility] Unsaturated Iron Binding 410 ug/dL [facility] Anion Gap 13 12 - 20 [facility] Blood Urea Nitrogen 18(H) 9 - 16 mg/dL [facility] Calcium 9.4 8.4 - 10.2 mg/dL [facility] Carbon Dioxide 24 22 - 29 mmol/L [facility] Chloride 105 96 - 108 mmol/L [facility] Creatinine, Serum 0.70 0.5 - 1.4 mg/dL [facility] Estimated Glomerular Filt Rate >60 [facility] Comment: NOTE: ??For -[place] individuals, multiply the result ?by 1210. ?? Chronic Kidney Disease: ??Estimated GFR < 60 mL/min/1.73m2 Severe Kidney Disease: ??Estimated GFR < 15 mL/min/1.73m2 Glucose Random 96 60 - 115 mg/dL [facility] Potassium 4.5 3.3 - 5.1 mmol/L [facility] Sodium 137 135 - 145 mmol/L [facility] C Reactive Protein 0.47 < or = 0.50 mg/dL [facility] 05/29/2021 7:16 AM EDT us Historical Provider HISTORICAL/NON ORDERABLE LABS Final Result [facility] [address] * THINPREP TIS PAP AND HPV mRNA E6/E7 WITH REFLEX TO HPV 16,18/45 (04/21/2021 3:57 PM EST) Clinical Information: None given [facility] COMMENT SEE COMMENT [facility] Comment: EXPLANATORY NOTE: ? The Pap is a screening test for cervical cancer. It is ?? not a diagnostic test and is subject to false negative ?? and false positive results. It is most reliable when a ?? satisfactory sample, regularly obtained, is submitted ?? with relevant clinical findings and history, and when ?? the Pap result is evaluated along with historic and ?? current clinical information. ?? COMMENT: This Pap test has been evaluated with computer assisted technology. [facility] Cnc Mill Set Up Operator: SEE COMMENT [facility] Comment: YP, CT(ASCP) CT screening location: [address] ??[address] HPV nRNA E6/E7 Not Detected Not Detected [facility] Comment: Methodology: Employment Appeals Examiner-Mediated Amplification This assay detects E6/E7 viral messenger RNA (mRNA) from 14 high-risk HPV types (16,18,31,33,35,39,45,51,52,56,58,59,66,68). ? The analytical performance characteristics of this assay have been determined by [facility]. The modifications have not been cleared or approved by the FDA. This assay has been validated pursuant to the CLIA regulations and is used for clinical purposes. ?? For additional information, please refer to http://education.FinalCAD/faq/ANZ218x2 (This link if provided for information/ educational purposes only.) Interpretation/Re sult: Negative for intraepithelial lesion or malignancy. [facility] LMP: 03/26/2021 [facility] Prev. BX: NONE GIVEN [facility] Prev. PAP: 2016 NIL [facility] SOURCE: Cervix [facility] Statement Of Adequacy: SEE COMMENT [facility] Comment: Satisfactory for evaluation. Endocervical/transformation zone component absent. 04/21/2021 3:57 PM EST [facility] PATHOLOGY ORDERABLES Final Result [facility] [address] from Last 3 Months or Most Recently Relevant to Health Maintenance Insurance [employer] PARTIAL Care Teams International Specialist Relationship Specialty Start Date End Date Logan Polanco MD [address] [place] [phone] PCP - General Internal Medicine 02/14/18
--- OUTSIDE RECORDS SUMMARY | 2024-04-05 15:59 | XMS_ITS | Encounter Summary ---
Author Organization [employer] Address [address] [place] [address] [address] [address] Care Team Providers Care Fuel Attendant Name Role Phone Logan Polanco MD Primary Care Provider +1- [phone] Encounter Details Date Type Department Care Team (Late st Contact Info) Description 08/31/2022 Orders Only [facility] MED & PEDS [address] [place] [address] Logan Polanco MD 505 [place] [address] Social History Tobacco Use Types Packs/Day Years Used Date Smoking Tobacco: Never Passive Smoke Exposure: Never Smokeless Tobacco: Never Alcohol Use Standard Drinks/Week Comments Never 0 (1 standard drink = 0.6 oz pur e alcohol) Comments Unknown Sex and Gender Information Value [...] on filedocumented in this encounter Care Teams Fuel Attendant Relationship Specialty Start Date End Date Logan Polanco MD 505 [place] [address] PCP - General Internal Medicine 02/14/18 documented as of this encounter
--- OUTSIDE RECORDS SUMMARY | 2024-04-05 15:59 | XMS_ITS | Clinical Summary ---
Author Organization 175 [facility] Address 175 [place] [address] Phone Care Team Providers Care Associate Merchandiser Name Role Phone Logan Polanco MD Primary Care Provider +1 -[phone] Allergies Active Allergy Reactions Criticality Noted Date Comments Shrimp 03/07/2024 Medications albuterol HFA (Ventolin HFA) 90 mcg/actuation inhaler Take 2 puffs by mouth 4 (four) times a day if needed. 2 Active cholecalciferol (VITAMIN D-3) 125 mcg (5,000 unit) capsule Take 125 mcg by mouth daily. 2 Active diclofenac (CATAFLAM) 50 mg tablet Take 1 tablet (50 mg total) by mouth 3 times daily. 4 Active diclofenac (VOLTAREN) 1 % topical gel To apply to the affected area 4 times a day 4 Active econazole nitrate 1 % cream Apply topically daily. 4 Active ferrous sulfate 325 mg (65 mg elemental iron) tablet Take 1 tablet (325 mg total) by mouth every other day. 3 Active FLUoxetine (PROzac) 10 mg capsule Take 1 capsule (10 mg total) by mouth daily. 2 Active fluticasone HFA (Flovent HFA) 110 mcg/actuation inhaler TAKE 2 PUFF BY INHALATION ROUTE 2 TIMES EVERY DAY 2 Active hydroCHLOROthia zide 12.5 mg tablet take 1 tablet (12.5 mg) by mouth once per day. Active levonorgestreL (Mirena) 21 mcg/24hr (up to 8 yrs) 52 mg IUD 2 Active mupirocin (BACTROBAN) 2 % ointment Apply topically 3 times daily. 4 Active tirzepatide, weight loss, (Zepbound) 2.5 mg/0.5 mL injection Inject 0.5 mL (2.5 mg total) under the skin. 4 Active bisacodyL (Laxative, bisacodyl,) 5 mg tablet TAKE 2 TABLETS BY MOUTH ONCE DIRECTED PRIOR TO COLONOSCOPY 2 Active meloxicam (Mobic) 15 mg tablet Take 1 tablet (15 mg total) by mouth 1 (one) time each day. 30 tablet 1 5 05/07/19 25 Active Encounters Date Type Department Care Team Description 03/07/2024 3:00 PM EST Consult Orthopedic Surgery - [place] [address] [phone] Gregg Pagan DPM Pain in both feet (Primary Dx); Posterior tibialis tendinitis of both lower extremities; Peroneal tendinitis of left lower extremity from Last 3 Months Social History Tobacco Use Types Packs/Day Years Used Date Smoking Tobacco: Never Assessed Comments Unknown Sex and Gender Information Value Date Recorded Sex Assigned at Not on file Legal Sex Female 10:35 AM EST Gender Identity Not on file Sexual Orientation Not on file Last Filed Vital Signs Vital Sign Reading Time Taken Comments Blood Pressure - - Pulse - - Temperature - - Respiratory Rate - - Oxygen Saturation - - Inhaled Oxygen Concentration - - Weight 116 kg (256 lb) 03/07/2024 2:56 PM EST Height 157.5 cm (5' 2 ) 03/07/2024 2:56 PM EST Body Mass Index 46.82 03/07/2024 2:56 PM EST Plan of Treatment Upcoming Encounters Date Type Department Care Team (Late st Contact Info) Description 05/31/2024 10:45 AM EDT Office Visit Orthopedic Surgery - [place] [address] [phone] Gregg Pagan DPM [address] [address] Health Maintenance Due Date Last Done Comments Breast Cancer Screening 1979 Hepatitis B Vaccines (1 of 3 - 19+ 3-dose series) 1998 Pneumococcal Vaccine: Pediatrics (0 to 5 Years) and At-Risk Patients (6 to 64 Years) (1 of 2 - PCV) 1998 Cervical Cancer Screening: P ap Smear 2000 DTaP,Tdap,and Td Vaccines (2 - Td or Tdap) 06/16/2022 06/16/2012 COVID-19 Vaccine (4 - 2023-2 5 season) 2023 02/17/2021, 05/30/2020, 04/30/2020 Influenza Vaccine (#1) 2023 7, 01/26/2013 Cholesterol Screening (Lipid Panel) 02/06/2024 Colorectal Cancer Screening: Colonoscopy 02/06/2024 Depression Screening 02/06/2024 HIV Screening 02/06/2024 Hepatitis C Screening 02/06/2024 Social Influencers of Health Screening 02/06/2024 Hypertension/CHF/CAD Annual BMP Blood Test 03/07/2024 HIB Vaccines Aged Out No longer eligi [...] on patient's age to complete this topic MMR Vaccines Aged Out No longer eligi ble based on patient's age to complete this topic Meningococcal ACWY Vaccine Aged Out N o longer eligible based on patient's age to complete this topic Meningococcal B Vacine Aged Out No lo nger eligible based on patient's age to complete this topic RSV Immunization Patients Under 20 months Aged Out No longer eligible b ased on patient's age to complete this topic Varicella Vaccines Aged Out No longer eligible based on patient's age to complete this topic Procedures Procedure Name Priority Date/Time Associated Diagnosis Comments XR FOOT 3+ VIEWS BILAT Routine 03/07/2024 3:28 PM EST Pain in right foot Pain in left foot from Last 3 Months Results * XR Foot 3+ Views bilat (03/07/2024 3:28 PM EST) Anatomical Region Laterality Modality Lower Extremities, Foot Bilateral Computed Radiography Narrative 03/21/2024 7:59 PM EST Left foot 3 views weightbearing: Rectus alignment of the digits in the forefoot with the midfoot. ??Minimal signs of arthritic change. ??Notable plantarflexion of the proximal phalanx with extension of the IP joint of the hallux. ??No fracture or dislocation Right foot 3 views weightbearing: Arthritic changes to the subtalar joint and above the talonavicular joint. ??Rectus alignment of the digits with the forefoot. ??No fractures or dislocation us Gregg Pagan DPM IMG XR PROCEDURES Final Res ult from Last 3 Months Insurance [facility] Care Teams Associate Merchandiser Relationship Specialty Start Date End Date Logan Polanco MD [address] [place] [address] PCP - General Internal Medicine 02/06/24
--- OUTSIDE RECORDS SUMMARY | 2024-04-05 15:59 | XMS_ITS | Encounter Summary ---
Author Organization [employer] [facility] Address [address] [place] [address] Care Team Providers Care Labeling Machine Operator Name Role Phone Logan Polanco MD Primary Care Provider [phone]- [phone] Reason for Visit * Reason Comments Med Change Request Encounter Details Date Type Department Care Team ([facility] st Contact Info) Description 07/09/2022 Refill [facility] CHC MED & PEDS 505 [place] [address] Logan Polanco MD 505 [place] [address] Social History Tobacco Use Types Packs/Day Years [...] on filedocumented in this encounter Care Teams Labeling Machine Operator Relationship Specialty Start Date End Date Logan Polanco MD 505 [place] [address] PCP - General Internal Medicine 02/14/18 documented as of this encounter
--- OUTSIDE RECORDS SUMMARY | 2024-04-05 15:59 | XMS_ITS | Encounter Summary ---
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 * Consultation (Routine) - Closed Specialty Diagnoses / Procedures Referred By Contact Referred To Contact Podiatry / Orthopaedic Surgery Diagnoses Pain in right foot Pain in left foot Logan Polanco MD [address] [place], [place] Phone: tel: fax: Riley Corado DPM [address] [address] Phone: tel: fax: Referral ID Status Reason Start Date Expiration Date V isits Requested Visits Authorized [id number] Closed Specialty Services Required 02/06/2024 02/05/2025 1 1 Encounter Details Date Type Department Care Team ([facility] st Contact Info) Description 03/07/2024 3:00 PM EST Consult Orthopedic Surgery - [place] [address] [phone] Gregg Pagan DPM [address] [address] Pain in both feet (Primary Dx); Posterior tibialis tendinitis of both lower extremities; Peroneal tendinitis of left lower extremity Social History Tobacco Use Types Packs/Day Years Used Date Smoking Tobacco: Never Assessed Comments Unknown Sex and Gender Information Value Date Recorded Sex Assigned at Not on file Legal Sex Female 10:35 AM EST Gender Identity Not on file Sexual Orientation Not on file documented as of this encounter Last Filed Vital Signs Vital Sign Reading Time Taken Comments Blood Pressure - - Pulse - - Temperature - - Respiratory Rate - - Oxygen Saturation - - Inhaled Oxygen Concentration - - Weight 116 kg (256 lb) 03/07/2024 2:56 PM EST Height 157.5 cm (5' 2 ) 03/07/2024 2:56 PM EST Body Mass Index 46.82 03/07/2024 2:56 PM EST documented in this encounter Ordered Prescriptions Prescription Sig Dispense Quantity Refills Last Filled Start Date End Date meloxicam (Mobic) 15 mg tablet Take 1 tablet (15 mg total) by mouth 1 (one) time each day. 30 tablet 1 03/07/2024 05/06/2024 documented in this encounter Progress Notes * Gregg Pagan DPM - 03/07/2024 3:00 PM EST Referring MD: Logan Polanco MD Last PCP visit: 02/02/2024 IDENTIFIER: @TITLE@ Susan is a 44 y.o. year old female who presents for consultation. CC: Bilateral foot and ankle pain HPI: 44-year-old female presents office chief complaint of bilateral foot and ankle pain. 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 Patient notes that she tries to wear good supportive shoes but has continued pain and swelling to the area. She notes that she had a family member with gout is concerned he may have gout. Patient points to the medial aspect of the ankle as area of max tenderness. Patient wears supportive sneakers but is unable to use them in her job at a kitchen. Patient is here for evaluation treatment ROS: GENERAL: Pt denies nausea, fever, vomiting, chills, or shortness of breath. Pt in NAD. CARDIOLOGY: pt denies chest pain, palpitations LUNGS: pt denies shortness of breath MUSCULOSKELETAL: See HPI, otherwise no joint pain or swelling, back pain, or muscle pain. SKIN: see HPI, otherwise no lesions, rash or itching NEURO: No persistent headache, weakness or numbness The remainder of the review of systems is noncontributory PAST MEDICAL HISTORY: There is no problem list on file for this patient. SOCIAL HISTORY: Social History Tobacco Use Smoking status: Not on file Smokeless tobacco: Not on file Substance Use Topics Alcohol use: Not on file ACTIVE MEDICATIONS: Outpatient Medications Marked as Taking for the 03/07/24 encounter (Consult) with Gregg Pagan DPM Medication Sig Dispense Refill albuterol HFA (Ventolin HFA) 90 mcg/actuation inhaler Take 2 puffs by mouth 4 (four) times a day ifneeded. bisacodyL (Laxative, bisacodyl,) 5 mg tablet TAKE 2 TABLETS BY MOUTH ONCE DIRECTED PRIOR TO COLONOSCOPY cholecalciferol (VITAMIN D-3) 125 mcg (5,000 unit) capsule Take 125 mcg by mouth daily. diclofenac (CATAFLAM) 50 mg tablet Take 1 tablet (50 mg total) by mouth 3 times daily. diclofenac (VOLTAREN) 1 % topical gel To apply to the affected area 4 times a day econazole nitrate 1 % cream Apply topically daily. ferrous sulfate 325 mg (65 mg elemental iron) tablet Take 1 tablet (325 mg total) by mouth every other day. FLUoxetine (PROzac) 10 mg capsule Take 1 capsule (10 mg total) by mouth daily. fluticasone HFA (Flovent HFA) 110 mcg/actuation inhaler TAKE 2 PUFF BY INHALATION ROUTE 2 TIMES EVERY DAY hydroCHLOROthiazide 12.5 mg tablet take 1 tablet (12.5 mg) by mouth once per day. levonorgestreL (Mirena) 21 mcg/24hr (up to 8 yrs) 52 mg IUD mupirocin (BACTROBAN) 2 % ointment Apply topically 3 times daily. tirzepatide, weight loss, (Zepbound) 2.5 mg/0.5 mL injection Inject 0.5 mL (2.5 mg total) under theskin. ALLERGIES: @ALL@ PHYSICAL EXAM: Height 1.575 m (62 ), weight 116 kg (256 lb). PODIATRIC EXAMINATION: GENERAL: Patient appears well nourished, with NAD. VASCULAR: Dorsalis pedis pulses are 2/4 bilaterally and Posterior tibial pulses are 2/4 bilaterally. Capillary filling time within normal limits the digits. No pallor on elevation or rubor on dependency. Positive hair growth. No varicosities. Denies rest pain or claudication pain. NEUROLOGICAL: Sharp/dull sensation intact, protective sensation intact 10/10 with 5.07 semmes jessica bilaterally, vibratory sensation with tuning fork intact to the tibial tuberosity. ORTHOPEDIC: Good muscle strength 5/5 of all flexors and extensors. Dorsi flexion of ankle ,10 degrees, plantar flexion WNL. No muscle atrophy. Flexible flatfoot deformity bilaterally. Severe pain andtenderness with swelling through the posterior tibial tendon from the retromalleolar area to the navicular tuberosity bilateral feet. Unable to do a single heel raise on each foot. Pain along the peroneal brevis as it inserts on the left fifth metatarsal base. DERMATOLOGICAL:.No masses or skin lesions noted. Normal skin temperature, normal skin turgor. BIOMECHANICS: STJ ROM wnl, MTJ ROM wnl, 1st MPJ ROM wnl. IMAGING: Notable decreased calcaneal inclination angle. Sagittal plane declination of the talar head. Increased kites angle bilaterally. Greater than 50% uncovering of the talar head. No fractures ordislocation no obvious arthritic changes IMPRESSION: 1. Pain in both feet 2. Posterior tibialis tendinitis of both lower extremities 3. Peroneal tendinitis of left lower extremity PLAN: Pt was seen and examined, history reviewed. Patient with findings of bilateral posterior tibial tendonitis. Patients pain is directly along thetendon's course Patient at this time would benefit from resting the tendon. This can be accomplished with use of ASO to the right ankle with medial support Patient can couple this immobilization with the use of anti-inflammatories. RX Mobic 15mg Patient is to take the anti-inflammatories daily with food. Patient understands their instructions. Patient was educated about the peroneal tendinitis to her left ankle and was educated how the flexibility of flatfoot is causing increased force through the dorsiflexion inversion during pushoff phase of gait and swing phase which is ultimately causing inflammation at the insertion point. Patient was educated on the importance of using an orthotic in her supportive shoes daily to limit collapse of the foot and put the patient's foot in a rectus position to decrease strain to the frontal plane Patient will return in 3 weeks for recheck and consideration for an ASO to be added to the left foot. Patient was educated that between the flexibility of her flatfoot and her weight she is exacerbating the tendinitis that is holding up her arch. Patient was encouraged to attempt to lose as much weight as possible to limit continued and strain on the posterior tibial tendon during stance Gregg Pagan DPM cc: Logan Polanco MD documented in this encounter Plan of Treatment Upcoming Encounters Date Type Department Care Team (Late st Contact Info) Description 05/31/2024 10:45 AM EDT Office Visit Orthopedic Surgery - [place] [address] 175 [facility] [address] [place] [address] Gregg Pagan DPM 175 [facility] [place] [address] [place] [address] documented as of this encounter Results * XR Foot 3+ Views bilat [...] DPM IMG XR PROCEDURES Final Res ult documented in this encounter Visit Diagnoses Diagnosis Pain in both feet- Primary Posterior tibialis tendinitis of both lower extremities Peroneal tendinitis of left lower extremity documented in this encounter Historical Medications * This list may reflect changes made after this encounter. bisacodyL (Laxative, bisacodyl,) 5 mg tablet TAKE 2 TABLETS BY MOUTH ONCE DIRECTED PRIOR TO COLONOSCOPY 12/21/2021 tirzepatide, weight loss, (Zepbound) 2.5 mg/0.5 mL injection Inject 0.5 mL (2.5 mg total) under the skin. 02/02/2024 mupirocin (BACTROBAN) 2 % ointment Apply topically 3 times daily. 03/14/2023 levonorgestreL (Mirena) 21 mcg/24hr (up to 8 yrs) 52 mg IUD 08/03/2021 hydroCHLOROthiaz reynaldo 12.5 mg tablet take 1 tablet (12.5 mg) by mouth once per day. fluticasone HFA (Flovent HFA) 110 mcg/actuation inhaler TAKE 2 PUFF BY INHALATION ROUTE 2 TIMES EVERY DAY 05/04/2021 FLUoxetine (PROzac) 10 mg capsule Take 1 capsule (10 mg total) by mouth daily. 04/21/2021 ferrous sulfate 325 mg (65 mg elemental iron) tablet Take 1 tablet (325 mg total) by mouth every other day. 07/09/2022 econazole nitrate 1 % cream Apply topically daily. 03/14/2023 diclofenac (VOLTAREN) 1 % topical gel To apply to the affected area 4 times a day 02/02/2024 diclofenac (CATAFLAM) 50 mg tablet Take 1 tablet (50 mg total) by mouth 3 times daily. 11/25/2023 cholecalciferol (VITAMIN D-3) 125 mcg (5,000 unit) capsule Take 125 mcg by mouth daily. 05/29/2021 albuterol HFA (Ventolin HFA) 90 mcg/actuation inhaler Take 2 puffs by mouth 4 (four) times a day if needed. 04/29/2021 added in this encounter Orders Outpatient Referral Count Last Ordered Date Fir st Ordered Date AMB REFERRAL TO PODIATRY 1 03/07/2024 documented in this encounter Care Teams Behavioral Analyst Relationship Specialty Start Date End Date Logan Polanco MD [address] [place] [address] PCP - General Internal Medicine 02/06/24 documented as of this encounter
== END 2024-04-05 15:57 | disposition home or self-care (01) ==
PROVIDERS: PCP Internal Medicine; Visit Provider Advanced Practice Midwife
DX: N83.8 Other noninflammatory disorders of ovary, fallopian tube and broad ligament (principal); R10.2 Pelvic and perineal pain; Z32.02 Encounter for pregnancy test, result negative; Z30.432 Encounter for removal of intrauterine contraceptive device
CPT/HCPCS: 58301; 99212

== ENCOUNTER 2024-04-05 14:49 | Outpatient (REF) | payer OTHER, SELFPAY ==
--- OUTSIDE RECORDS SUMMARY | 2024-04-05 16:49 | XMS_ITS | Encounter Summary ---
Author Organization [employer] [facility] Address [address] [place] [address] Care Team Providers Care Hansard Reporter Name Role Phone Logan Polanco MD Primary Care Provider [phone]- [phone] Reason for Visit * Reason Comments Med Change Request Encounter Details Date Type Department Care Team ([facility] st Contact Info) Description 07/09/2022 Refill [facility]C MED & PEDS [address] [place] [address] Logan Polanco MD 505 [place] [address] Social History Tobacco Use Types Packs/Day Years [...] on filedocumented in this encounter Care Teams Hansard Reporter Relationship Specialty Start Date End Date Logan Polanco MD [address] [place] [address] PCP - General Internal Medicine 02/14/18 documented as of this encounter
--- OUTSIDE RECORDS SUMMARY | 2024-04-05 16:49 | XMS_ITS | Encounter Summary ---
Author Organization [employer] Address [address] [place] [address] [address], [place] [address] Care Team Providers Care Inspector Precision Assembly Name Role Phone Logan Polanco MD Primary Care Provider [phone]- [phone] Encounter Details Date Type Department Care Team (Late st Contact Info) Description 08/31/2022 Orders Only [facility] CHC MED & PEDS [address] [place] [address] Logan Polanco MD 505 [place] [address] Social History Tobacco Use Types Packs/Day Years [...] on filedocumented in this encounter Care Teams Inspector Precision Assembly Relationship Specialty Start Date End Date Logan Polanco MD 505 [place] [address] PCP - General Internal Medicine 02/14/18 documented as of this encounter
--- OUTSIDE RECORDS SUMMARY | 2024-04-05 16:49 | XMS_ITS | Clinical Summary ---
Author Organization 175 [facility] Address 175 [place] [address] Phone Care Team Providers Care Program Director/Air Personality Name Role Phone Logan Polanco MD Primary Care Provider +1 -[phone] Allergies Active Allergy Reactions Criticality Noted Date [...] 3:00 PM EST Consult Orthopedic Surgery - [place] [address] [phone] Gregg Pagan DPM Pain in both feet [...] AM EDT Office Visit Orthopedic Surgery - [place] [address] [phone] Gregg Pagan DPM [address] [address] Health Maintenance Due Date Last Done Comments [...] Res ult from Last 3 Months Insurance [facility] Care Teams Program Director/Air Personality Relationship Specialty Start Date End Date Logan Polanco MD [address] [place] [address] PCP - General Internal Medicine 02/06/24
--- OUTSIDE RECORDS SUMMARY | 2024-04-05 16:49 | XMS_ITS | Encounter Summary ---
Author Organization [employer] Address [address] [facility] [address] [place] [address] Care Team Providers Care Waste Water Plant Operator Name Role Phone Logan Polanco MD Primary Care Provider [phone]- [phone] Encounter Details Date Type Department Care Team ([facility] st Contact Info) Description 02/06/2024 Orders Only [facility] CHC MED & PEDS [address] [place] [address] Logan Polanco MD 505 [place] [address] Social History Tobacco Use Types Packs/Day Years [...] on filedocumented in this encounter Care Teams Waste Water Plant Operator Relationship Specialty Start Date End Date Logan Polanco MD [address] [place] [address] PCP - General Internal Medicine 02/14/18 documented as of this encounter
--- OUTSIDE RECORDS SUMMARY | 2024-04-05 16:49 | XMS_ITS | Encounter Summary ---
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 * Consultation (Routine) - Closed Specialty Diagnoses / Procedures Referred By Contact Referred To Contact Podiatry / Orthopaedic Surgery Diagnoses Pain in right foot Pain in left foot Logan Polanco MD [address] [place], [place] Phone: tel: fax: Riley Corado DPM [address] [address] Phone: tel: fax: Referral ID Status Reason Start Date Expiration Date V isits Requested Visits Authorized [id number] Closed Specialty Services Required 02/06/2024 02/05/2025 1 1 Encounter Details Date Type Department Care Team ([facility] st Contact Info) Description 03/07/2024 3:00 PM EST Consult Orthopedic Surgery - [place] [address] [phone] Gregg Pagan DPM [address] [address] Pain in both feet (Primary Dx); Posterior [...] AM EDT Office Visit Orthopedic Surgery - [place] [address] 175 [facility] 250 [place] [address] Gregg Pagan DPM 175 [facility] [place] [address] [place] [address] documented as of this encounter Results * [...] 03/07/2024 documented in this encounter Care Teams Athlete Marketing Agent Relationship Specialty Start Date End Date Logan Polanco MD [address] [place] [address] PCP - General Internal Medicine 02/06/24 documented as of this encounter
--- OUTSIDE RECORDS SUMMARY | 2024-04-05 16:49 | XMS_ITS | Clinical Summary ---
Author Organization [employer] Address [address] [place] [address] 7t [place] [address] Care Team Providers Care Drill Sergeant Name Role Phone Logan Polanco MD Primary Care Provider [phone]- [phone] Allergies Active Allergy Reactions Criticality Noted Date [...] (BMI) of 45.0 to 49.9 in adult ([facility]) Inject 0.5 mL (2.5 mg) under the [...] to do her X-rays and f/u with Brush Stainer. Recommended follow up with PCP. Relevant orders: -Diclofenac (Cataflam) 50 MG tablet Assessment & Plan (02/19/2022 10:23 AM EST): Acute on chronic issue already seen yesterday by rice farmer and reports she felt she wasn't being heard and that injection she had didn't help. She is tearful and reporting she has problems standing for prolonged periods of time given her bilateral feet pain more prominent in her R foot. Will need to get records from podiatry, please referral to new rice farmer. Recommended followup with PCP. Sent X rays and given letter for work. Also rx NSAIDs Essential hypertension 02/18/2022 Assessment & Plan (03/15/2023 11:02 AM EST): Elevated diastolic BP, recommended f/up PCP Microcytic anemia 01/16/2020 Microscopic hematuria 01/16/2020 Mild intermittent asthma 02/09/2017 Encounters Date Type Department Care Team Description 02/09/2024 Telephone [facility] [address] [place] [address] Logan Polanco MD 02/06/2024 Orders Only [facility] [address] [place], [place] [phone] Logan Polanco MD 02/03/2024 Telephone [place] [employer] [address] [place] [address] Logan Polanco MD 02/02/2024 9:15 AM EST Office Visit [facility] [address] [place] [address] Logan Polanco MD Pain in both feet (Primary Dx); Biceps tendinitis of left upper extremity; Essential hypertension; Dietary counseling; Exercise counseling; Class 3 severe obesity due to excess calories with serious comorbidity and body mass index (BMI) of 45.0 to 49.9 in adult ([facility]) 02/02/2024 Travel from Last 3 Months Immunizations [...] the past 12 months, has t he [employer], gas, oil or water company threatened to [...] EST Narrative 02/04/2024 12:02 PM EST ? [facility] ?[address] ?[place] [address] ?XRay Report ? Signed ? Patient: Roselyn Davis ?MR#: [id number] ?? 7 ? : 1980 ?Acct:[id number] ? Age/Sex: 43 / F ?ADM Date: 02/02/24 ? Loc: HO.XRAY ? Attending Dr: Logan Polanco MD ? Ordering Physician: Logan Polanco MD ?? Date of Service: 02/02/24 ?? Procedure(s): XR foot LT min 3V ?? Accession Number(s): [id number] ? cc: Logan Polanco MD ? EXAMINATION: [...] DD/ 1043 ? TD/TT: 02/02/24 1115 ? Brick Handler: HS ? Procedure Note Donkristinaponcejaketer, Image - 02/04/2024 [place] [address] XRay Report Signed Patient: Roselyn DavisMR#: [id number] 7 : 1980Acct:[id number] Age/Sex: 43 / FADM Date: 02/02/24 Loc: WENDY Attending Dr: Logan Polanco MD Ordering Physician: Logan Polanco MD Date of Service: 02/02/24 Procedure(s): XR foot LT min 3V Accession Number(s): [id number] cc: Logan Polanco MD EXAMINATION: XR FOOT, [...] by: Richard Cevallos MD 02/04/2024 12:00 PM [facility] Dictated By: Richard Cevallos MD Signed By: <Electronically signed by Richard Cevallos MD in OV> 02/04/24 1200 DD/ 1043 TD/TT: 02/02/24 1115 Brick Handler: HS us Logan Polanco MD IMG XR PROCEDURES Edited Re sult - Final * XR Shoulder 2+ Views Left (02/02/2024 10:43 AM EST) Anatomical Region Laterality Modality Upper Extremities, Shoulder Left Radi ographic Imaging 02/02/2024 10:4 3 AM EST Narrative 02/04/2024 12:00 PM EST ? [facility] ?[address] ?[place] [address] ?XRay Report ? Signed ? Patient: Mattey,Roselyn ?MR#: [id number] ?? 7 ? : 1980 ?Acct:[id number] ? Age/Sex: 43 / F ?ADM Date: 02/02/24 ? Loc: HO.XRAY ? Attending Dr: Logan Poalnco MD ? Ordering Physician: Logan Polanco MD ?? Date of Service: 02/02/24 ?? Procedure(s): XR shoulder LT min 2V ?? Accession Number(s): [id number] ? cc: Logan Polanco MD ? EXAMINATION: [...] DD/ 1043 ? TD/TT: 02/02/24 1115 ? Brick Handler: HS ? Procedure Note Donotuseinterpreter, Image - 02/04/[address] [address] XRay Report Signed Patient: Roselyn DavisMR#: [id number] 7 : 1980Acct:[id number] Age/Sex: 43 / FADM Date: 02/02/24 Loc: HO.XRAY Attending Dr: Logan Polanco MD Ordering Physician: Logan Polanco MD Date of Service: 02/02/24 Procedure(s): XR shoulder LT min 2V Accession Number(s): [id number] cc: Logan Polanco MD EXAMINATION: XR SHOULDER [...] 02/04/24 1157 DD/ 1043 TD/TT: 02/02/24 1115 Brick Handler: HS us Logan Polanco MD IMG XR PROCEDURES Edited Re sult - Final * XR Foot 3+ Views Right (02/02/2024 10:42 AM EST) Anatomical Region Laterality Modality Lower Extremities, Foot Right Radiogra phic Imaging 02/02/2024 10:4 2 AM EST Narrative 02/04/2024 11:59 AM EST ? [facility] ?[address] ?[place] [address] ?XRay Report ? Signed ? Patient: Mattey,Roselyn ?MR#: [id number] ?? 7 ? : 1980 ?Acct:[id number] ? Age/Sex: 43 / F ?ADM Date: 02/02/24 ? Loc: HO.XRAY ? Attending Dr: Logan Polanco MD ? Ordering Physician: Logan Polanco MD ?? Date of Service: 02/02/24 ?? Procedure(s): XR foot RT min 3V ?? Accession Number(s): [id number] ? cc: Logan Polanco MD ? EXAMINATION: [...] by Richard Cevallos MD in OV> ?02/04/24 1156 ? DD/ 1042 ? TD/TT: 02/02/24 1115 ? Brick Handler: HS ? Procedure Note Jane Alfaro - 02/04/2024 [facility] [address] [place] [address] XRay Report Signed Patient: Benjamín DavisfedeMR#: [id number] 7 : 1980Acct:[id number] Age/Sex: 43 / FADM Date: 02/02/24 Loc: HOCRYSTAL Attending Dr: Logan Polanco MD Ordering Physician: Logan Polanco MD Date of Service: 02/02/24 Procedure(s): XR foot RT min 3V Accession Number(s): [id number] cc: Logan Polanco MD EXAMINATION: XR FOOT, [...] 02/04/24 1156 DD/ 1042 TD/TT: 02/02/24 1115 Brick Handler: us Logan Polanco MD IMG XR PROCEDURES Edited Re sult - Final * BI Mammogram Screening Tomosynthesis Bilateral (04/30/2023 8:10 AM EDT) Anatomical Region Laterality Modality Breast Bilateral Mammography 04/30/2023 8:10 AM EDT Narrative 05/13/2023 4:09 PM EDT ? [facility] ? [address] ?[place] [address] ? Mammography Report ? Signed ? Patient: Mattey,Roselyn ?MR#: [id number] ?? 7 ? : 1980 ?Acct:[id number] ? Age/Sex: 43 / F ?ADM Date: 03/16/24 ? Loc: HO.MAMMO ? Attending Dr: Logan Polanco MD ? Ordering Physician: Logan Polanco MD ?Results: 1 ?? Negative ? Date of Service: 04/30/23 ?Follow Up: 1 Year From Orig ?? inal Mammogram ? Procedure(s): MM tomosynthesis screening BI ?? Accession Number(s): [id number] ? cc: Logan Polanco MD ? EXAMINATION: [...] 1605 ? DD/ 0810 ? TD/TT: ? Brick Handler: ? Procedure Note Donotuseinterpreter, Image - 05/13/2023 [place] [facility] [address] [place], [place] [address] Mammography Report Signed Patient: Roselyn DavisMR#: [id number] 7 : 1980Acct:[id number] Age/Sex: 43 / FADM Date: 04/30/23 Loc: HO.MAMMO Attending Dr: Logan Polanco MD Ordering Physician: Logan Polanco MDResults: 1 Negative Date of Service: 04/30/23Follow Up: 1 Year From Orig inal Mammogram Procedure(s): MM tomosynthesis screening BI Accession Number(s): [id number] cc: Logan Polanco MD EXAMINATION: MM SCREENING [...] in OV> 05/13/23 1605 DD/ 0810 TD/TT: Brick Handler: us Logan Polanco MD IMG BI PROCEDURES Edited Re sult - Final * (ABNORMAL) LIPID PANEL (05/29/2021 7:16 AM EDT) Cholesterol 202 mg/dL [facility] Comment: Desirable Cholesterol: ?less than 200 mg/dL Borderline High Cholesterol: ??200-239 mg/dL High Cholesterol: ? greater than 239 mg/dL HDL Cholesterol 43 mg/dL [facility] Comment: Desirable HDL: ??greater than 40 mg/dL ?? Note: This HDL assay may give artificially ? low results in patients with liver disease. LDL Cholesterol Calculated 143 mg/dl [facility] Comment: Desirable LDL: ? less [...] >60 [facility] Comment: NOTE: ??For -Prydeinig individuals, multiply the result ?by 1210. ?? Chronic Kidney Disease: ??Estimated GFR < 60 mL/min/1.73m2 Severe Kidney Disease: ??Estimated GFR < 15 mL/min/1.73m2 Glucose Random 96 60 - 115 mg/dL [facility] Potassium 4.5 3.3 - 5.1 mmol/L [facility] Sodium 137 135 - 145 mmol/L [facility] C Reactive Protein 0.47 < or = 0.50 mg/dL [facility] 05/29/2021 7:16 AM EDT us Historical Provider HISTORICAL/NON ORDERABLE LABS Final Result [facility] [address] * THINPREP TIS PAP AND HPV [...] has been evaluated with computer assisted technology. [facility] Housekeeping Room Attendant: SEE COMMENT [facility] Comment: YP, CT(ASCP) CT screening location: [address] ??[address] HPV nRNA E6/E7 Not Detected Not Detected [facility] Comment: Methodology: Supervisor Rides-Mediated Amplification This assay detects E6/E7 viral messenger RNA (mRNA) from 14 high-risk HPV types (16,18,31,33,35,39,45,51,52,56,58,59,66,68). ? The analytical performance characteristics of this assay have been determined by [employer]. The modifications have not been cleared or approved by the FDA. This assay has been validated pursuant to the CLIA regulations and is used for clinical purposes. ?? For additional information, please refer to http://education.[employer]/faq/GDW454m3 (This link if provided for information/ educational purposes only.) Interpretation/Re sult: Negative for intraepithelial lesion or malignancy. [facility] LMP: 03/26/2021 [facility] Prev. BX: NONE GIVEN [facility] Prev. PAP: 2016 NIL [facility] SOURCE: [employer] [facility] Statement Of Adequacy: SEE COMMENT [facility] Comment: Satisfactory for evaluation. Endocervical/transformation zone component absent. 04/21/2021 3:57 PM EST Radha DIAS LAB PATHOLOGY ORDERABLES Final Result [facility] [address] from Last 3 Months or Most Recently Relevant to Health Maintenance Insurance HSN PARTIAL Care Teams Drill Sergeant Relationship Specialty Start Date End Date Logan Polanco MD [address] [place] [address] PCP - General Internal Medicine 02/14/18
[2024-04-07 11:55] LABS: Bacterial Vaginosis PCR NEGATIVE (Negative); Candida Group PCR NOT DETECTED (Not Detect); Candida glab krusei PCR NOT DETECTED (Not Detect); Trichomonas vaginalis PCR NOT DETECTED (Not Detect)
== END 2024-04-05 14:50 | disposition home or self-care (01) ==
LOC: HO.LNP 14:49
PROVIDERS: PCP Internal Medicine; Visit Provider Advanced Practice Midwife
DX: Z30.432 Encounter for removal of intrauterine contraceptive device (principal); R10.2 Pelvic and perineal pain
CPT/HCPCS: 58301; 81025; 81515

== ENCOUNTER 2024-06-08 14:33 | Outpatient (REF) | payer OTHER, SELFPAY ==
--- OUTSIDE RECORDS SUMMARY | 2024-06-08 15:14 | XMS_ITS | Encounter Summary ---
Author Organization [employer] Address [address] [facility] [address]t [place] [address] Care Team Providers Care Metal Stamper Name Role Phone Logan Polanco MD Primary Care Provider +1- [phone] Encounter Details Date Type Department Care Team ([facility] st Contact Info) Description 02/06/2024 Orders Only [facility] [address] [place] [address] Logan Polanco MD [address] [place] [address] Social History Tobacco Use Types Packs/Day Years [...] on filedocumented in this encounter Care Teams Metal Stamper Relationship Specialty Start Date End Date Logan Polanco MD [address] [place] [address] PCP - General Internal Medicine 02/14/18 documented as of this encounter
--- OUTSIDE RECORDS SUMMARY | 2024-06-08 15:14 | XMS_ITS | Encounter Summary ---
Author Organization [employer] [facility] Address [address] [place] [address] Care Team Providers Care Nipple Threader Name Role Phone Logan Polanco MD Primary Care Provider +1- [phone] Reason for Visit * Reason Comments Med Change Request Encounter Details Date Type Department Care Team ([facility] st Contact Info) Description 07/09/2022 Refill [facility] [address] [place] [address] Logan Polanco MD [address] [place] [address] Social History Tobacco Use Types Packs/Day Years [...] on filedocumented in this encounter Care Teams Nipple Threader Relationship Specialty Start Date End Date Logan Polanco MD [address] [place] [address] PCP - General Internal Medicine 02/14/18 documented as of this encounter
--- OUTSIDE RECORDS SUMMARY | 2024-06-08 15:14 | XMS_ITS | Clinical Summary ---
Author Organization [employer] Address [address] [place] [address] [address]t [place] [address] Care Team Providers Care Retort Kiln Burner Name Role Phone Logan Polanco MD Primary Care Provider [phone]- [phone] Allergies Active Allergy Reactions Criticality Noted Date Comments Shrimp Flavor Agent (Non-Screening) Rash Low 02/18/2022 All shrimp produce Medications Mirena, 52 MG, 20 MCG/DAY intrauterine device 08/04/19 22 Active Flovent HFA 110 MCG/ACT inhaler TAKE 2 PUFF BY INHALATION ROUTE 2 TIMES EVERY DAY 05/05/19 22 Active FLUoxetine (PROzac) 10 MG capsule Take 10 mg by mouth in the morning. 04/22/19 22 Active [facility] Gentle Laxative 5 MG EC tablet TAKE 2 TABLETS BY MOUTH ONCE DIRECTED PRIOR TO COLONOSCOPY 12/22/19 22 Active Ventolin HFA 108 (90 Base) MCG/ACT inhaler INHALE 2 PUFFS BY MOUTH 4 TIMES A DAY NEEDED 04/30/19 22 Active cholecalciferol (Vitamin D-3) 125 MCG (5000 UT) capsule Take 125 mcg by mouth in the morning. 05/30/19 22 Active ferrous sulfate 325 (65 Fe) MG tablet TAKE 1 TABLET BY MOUTH EVERY OTHER DAY 45 tablet 1 07/10/19 23 Active mupirocin (Bactroban) 2 % ointment Apply topically 3 times daily. 60 g 03/14/19 24 Active econazole nitrate 1 % cream Apply topically in the morning. 60 g 03/14/19 24 Active Diclofenac Sodium 1 % gelIndications: Biceps tendinitis of left upper extremity To apply to the affected area 4 times a day 100 g 1 02/02/20 24 Active hydroCHLOROthia zide 12.5 MG tabletIndicatio ns:Essential hypertension Take 1 tablet (12.5 mg) by mouth Once per day. 30 tablet 11 02/02/20 24 025 Active Tirzepatide-Lonnie ght Management (Zepbound) 2.5 MG/0.5ML solution auto-injectorIn dications:Class 3 severe obesity due to excess calories with serious comorbidity and body mass index (BMI) of 45.0 to 49.9 in adult Inject 0.5 mL (2.5 mg) under the skin 1 (one) time per week. 2 mL 1 02/02/20 24 Active diclofenac (Cataflam) 50 MG tablet TAKE 1 TABLET BY MOUTH 3 TIMES DAILY 90 tablet 05/15/19 25 Active diclofenac (Cataflam) 50 MG tablet Take 1 tablet (50 mg) by mouth 3 times daily. 90 tablet 11/25/19 24 025 Discontinued Active Problems Problem Noted Date Diagnosed Date [...] to do her X-rays and f/u with Chief Console Operator. Recommended follow up with PCP. Relevant orders: -Diclofenac (Cataflam) 50 MG tablet Assessment & Plan (02/19/2022 10:23 AM EST): Acute on chronic issue already seen yesterday by corporate wellness coordinator and reports she felt she wasn't being heard and that injection she had didn't help. She is tearful and reporting she has problems standing for prolonged periods of time given her bilateral feet pain more prominent in her R foot. Will need to get records from podiatry, please referral to new corporate wellness coordinator. Recommended followup with PCP. Sent X rays and given letter for work. Also rx NSAIDs Essential hypertension 02/18/2022 Assessment & Plan (03/15/2023 11:02 AM EST): Elevated diastolic BP, recommended f/up PCP Microcytic anemia 01/16/2020 Microscopic hematuria 01/16/2020 Mild intermittent asthma 02/09/2017 Encounters Date Type Department Care Team Description 05/14/2024 Refill [facility] [address] [place] [address] Santa Rojas MD 04/05/2024 Orders Only GENERIC EXTERNAL DATA DEPARTMENT Provider, Generic External Data from Last 3 Months Immunizations Name Administration Dates Next Due Influenza injectable quadrivalent preservative f ree 02/09/2017 Influenza, Split (incl. purified surface antigen ) 01/26/2013 Moderna Covid-19 Vaccine 12+ 04/30/2020 Tdap 06/16/2012 Social History Tobacco Use [...] 06/16/2012 SDOH Screening 09/21/2023 09/20/2022 COVID-19 Vaccine ( - 2023-2 5 season) 2023 02/17/2021, 05/30/2020, [...] Procedure Name Priority Date/Time Associated Diagnosis Comments BACTERIAL VAGINOSIS PANEL Routine 04/05/2024 2:49 PM EST BI MAMMOGRAM SCREENING TOMOSYNTHESIS BILATERAL Routine 04/30/2023 8:10 AM EDT ZZZ HISTORICAL LIPID PANEL Routine 05/29/2021 7:16 AM EDT THINPREP IMAGING PAP AND HPV MRNA E6/E7 WITH REFLEX TO HPV 16,18/45 Routine 04/21/2021 3:57 PM EST from Last 3 Months or Most Recently Relevant to Health Maintenance Results * Bacterial Vaginosis (04/05/2024 2:49 PM EST) TRICHOMONAS VAGINALIS DETECTION BY PCR NOT DETECTED Not Detect [facility] BACTERIAL VAGINOSIS DETECTION BY PCR NEGATIVE Negative [facility] Comment:The BV organism targ ets of the Xpert Xpress MVP test can becommensal in women; Xpert Xpress MVP positive results forbacterial vaginosis should be considered in conjunction withother clinical and patient information to determine thedisease status. Organisms that are not detected by the XpertXpress MVP test have also been reported to be associatedwith BV and aerobic vaginitis.The Xpert Xpress MVP test performance has not been evaluatedin patients under the age of 14. NORMA GROUP DETECTION BY PCR NOT DETECTED Not Detect [facility] Norma glab krusei PCR NOT DETECTED Not Detect [facility] 04/05/2024 2:49 PM EST 04/06/2024 2:57 PM EST us Generic External Data Provider LAB MICROBIOLOGY - GENERAL ORDERABLES Final Result Performing Organization Address City/State/[facility] Co de Phone Number [facility] [address] [place] [address] [phone] * BI Mammogram Screening Tomosynthesis Bilateral (04/30/2023 8:10 AM EDT) Anatomical Region Laterality Modality Breast Bilateral Mammography 04/30/2023 8:10 AM EDT Narrative 05/13/2023 4:09 PM EDT ? [facility] ? [address] ?[place] [address] ? Mammography Report ? Signed ? Patient: Mattey,Roselyn ?MR#: [id number] ?? 7 ? : 1980 ?Acct:[id number] ? Age/Sex: 43 / F ?ADM Date: 03/16/24 ? Loc: HO.MAMMO ? Attending : Logan Polanco MD ? Ordering Physician: Logan Polanco MD ?Results: 1 ?? Negative ? Date of Service: 04/30/23 ?Follow Up: 1 Year From Orig ?? inal Mammogram ? Procedure(s): MM tomosynthesis screening BI ?? Accession Number(s): [id number] ? cc: Logan Polanco MD ? EXAMINATION: [...] by Rosamaria Toussaint MD in OV> ? 05/13/23 1605 ? DD/ 0810 ? TD/TT: ? Public Health Assistant: ? Procedure Note Donotuseinterpreter, Image - 05/13/2023 [facility] [address] [place] [address] Mammography Report Signed Patient: Roselyn DavisMR#: [id number] 7 : 1980Acct:[id number] Age/Sex: 43 / FADM Date: 04/30/23 Loc: HO.MAMMO Attending Dr: Logan Polanco MD Ordering Physician: Logan Polanco MDResults: 1 Negative Date of Service: 04/30/23Follow Up: 1 Year From Orig inal Mammogram Procedure(s): MM tomosynthesis screening BI Accession Number(s): [id number] cc: Logan Polanco MD EXAMINATION: MM SCREENING [...] in OV> 05/13/23 1605 DD/ 0810 TD/TT: Public Health Assistant: us Logan Polanco MD IMG BI PROCEDURES Edited Re sult - Final * (ABNORMAL) LIPID PANEL (05/29/2021 7:16 AM EDT) Cholesterol 202 mg/dL [facility] Comment: Desirable Cholesterol: ?less than 200 mg/dL Borderline High Cholesterol: ??200-239 mg/dL High Cholesterol: ? greater than 239 mg/dL HDL Cholesterol 43 mg/dL [facility] Comment: Desirable HDL: ??greater than 40 mg/dL ?? Note: This HDL assay may give artificially ? low results in patients with liver disease. LDL Cholesterol Calculated 143 mg/dl [facility] Comment: Desirable LDL: ? less [...] mg/dL Iron 31 30 - 160 mcg/dL [facility] Percent Iron Saturation 7(L) 15 - 50 % [facility] Total Iron Binding Capacity 441(H) 228 - 428 mcg/dL [facility] Unsaturated Iron Binding 410 ug/dL [facility] Anion Gap 13 12 - 20 [facility] Blood Urea Nitrogen 18(H) 9 - 16 mg/dL [facility] Calcium 9.4 8.4 - 10.2 mg/dL [facility] Carbon Dioxide 24 22 - 29 mmol/L [facility] Chloride 105 96 - 108 mmol/L [facility] Creatinine, Serum 0.70 0.5 - 1.4 mg/dL [facility] Estimated Glomerular Filt Rate >60 [facility] Comment: NOTE: ??For -Grenadian individuals, multiply the result ?by 210. ?? Chronic Kidney Disease: ??Estimated GFR < 60 mL/min/1.73m2 Severe Kidney Disease: ??Estimated GFR < 15 mL/min/1.73m2 Glucose Random 96 60 - 115 mg/dL [facility] Potassium 4.5 3.3 - 5.1 mmol/L [facility] Sodium 137 135 - 145 mmol/L [facility] C Reactive Protein 0.47 < or = 0.50 mg/dL [facility] 05/29/2021 7:16 AM EDT us Historical Provider MD HISTORICAL/NON ORDERABLE LABS Final Result [facility] [address] * THINPREP TIS PAP AND HPV mRNA E6/E7 WITH REFLEX TO HPV 16,18/45 (04/21/2021 3:57 PM EST) Clinical Information: None given [facility] COMMENT SEE COMMENT [facility] [...] has been evaluated with computer assisted technology. [facility] Aco Coordinator: SEE COMMENT [facility] Comment: YP, CT(ASCP) CT screening location: [address] ??[address] HPV nRNA E6/E7 Not Detected Not Detected [facility] Comment: Methodology: Ict Teacher-Mediated Amplification This assay detects E6/E7 viral messenger RNA (mRNA) from 14 high-risk HPV types (16,18,31,33,35,39,45,51,52,56,58,59,66,68). ? The analytical performance characteristics of this assay have been determined by [employer]. The modifications have not been cleared or approved by the FDA. This assay has been validated pursuant to the CLIA regulations and is used for clinical purposes. ?? For additional information, please refer to http://education.[employer]/faq/UAS869t7 (This link if provided for information/ educational purposes only.) Interpretation/Re sult: Negative for intraepithelial lesion or malignancy. [facility] LMP: 03/26/2021 [facility] Prev. BX: NONE GIVEN [facility] Prev. PAP: 2016 NIL [facility] SOURCE: [employer]ix [facility] Statement Of Adequacy: SEE COMMENT [facility] Comment: Satisfactory for evaluation. Endocervical/transformation zone component absent. 04/21/2021 3:57 PM EST us Radha DIAS LAB PATHOLOGY ORDERABLES Final Result [facility] [address] from Last 3 Months or Most Recently Relevant to Health Maintenance Insurance HSN PARTIAL , [address] [place] [address] Care Teams Retort Kiln Burner Relationship Specialty Start Date End Date Logan Polanco MD [address] [place] [address] PCP - General Internal Medicine 02/14/18
--- OUTSIDE RECORDS SUMMARY | 2024-06-08 15:14 | XMS_ITS | Encounter Summary ---
Author Organization [employer] Address [address] [place] [address] [place] [address] Care Team Providers Care Regulatory Auditor Name Role Phone Logan Polanco MD Primary Care Provider +1- [phone] Encounter Details Date Type Department Care Team (Late st Contact Info) Description 08/31/2022 Orders Only [facility] PEDS [address] [place] [address] Logan Polanco MD [address] [place] [address] Social History Tobacco Use Types Packs/Day Years [...] on filedocumented in this encounter Care Teams Regulatory Auditor Relationship Specialty Start Date End Date Logan Polanco MD [address] [place] [address] PCP - General Internal Medicine 02/14/18 documented as of this encounter
--- OUTSIDE RECORDS SUMMARY | 2024-06-08 15:14 | XMS_ITS | Clinical Summary ---
Author Organization 175 [facility] Address 175 [place] [address] Phone Care Team Providers Care Concrete Grinder Operator Name Role Phone Logan Polanco MD Primary Care Provider [phone] -[phone] Allergies Active Allergy Reactions Criticality Noted Date [...] 1 (one) time each day. 30 tablet 5 07/01/19 25 Active Encounters Date Type Department Care Team Description 05/31/2024 10:45 AM EDT Office Visit Orthopedic Surgery [facility] 250 175 [facility] [address] [place] [id number] Gregg Pagan DPM Posterior tibialis tendinitis of both lower extremities (Primary Dx); Pain in both feet from Last 3 Months Social History Tobacco [...] - - Weight 116 kg (256 lb) 05/31/2024 11:19 AM EDT Height 157.5 cm (5' 2.01 ) 05/31/2024 11:19 AM E DT Body Mass Index 46.81 05/31/2024 11:19 AM EDT Plan of Treatment Upcoming Encounters Date Type Department Care Team (Late st Contact Info) Description 08/02/2024 2:45 PM EDT Office Visit Orthopedic Surgery [facility] [address] [phone] Gregg Pagan DPM [address] [address] Health Maintenance Due Date Last Done Comments [...] 2023-2 5 season) 2023 02/17/2021, 05/30/2020, 04/30/2020 Cholesterol Screening (Lipid Panel) 02/06/2024 Colorectal Cancer Screening: Colonoscopy 02/06/2024 Depression Screening 02/06/2024 HIV Screening 02/06/2024 Hepatitis C Screening 02/06/2024 Social Influencers of Health Screening 02/06/2024 Hypertension/CHF/CAD Annual BMP Blood Test 03/07/2024 Influenza Vaccine (Season Ended) 2024 02/09/2017, 01/26/2013 HIB Vaccines Aged Out No longer eligi [...] age to complete this topic Meningococcal B Vaccine Aged Out No l onger eligible based on patient's age to complete this topic RSV Immunization Patients Under 20 months Aged Out No longer eligible b ased on patient's age to complete this topic Varicella Vaccines Aged Out No longer eligible based on patient's age to complete this topic Insurance [facility] Care Teams Concrete Grinder Operator Relationship Specialty Start Date End Date Logan Polanco MD [address] [place] [id number] PCP - General Internal Medicine 02/06/24
== END 2024-06-08 14:34 | disposition home or self-care (01) ==
LOC: HO.MAMMO 14:33
PROVIDERS: PCP Internal Medicine; Visit Provider Internal Medicine
DX: Z12.31 Encounter for screening mammogram for malignant neoplasm of breast (principal)
CPT/HCPCS: 77063; 77067

== ENCOUNTER → 2024-06-08 14:45 | Outpatient (BNV) | payer OTHER, SELFPAY | PROVIDERS: PCP Internal Medicine; Visit Provider Internal Medicine | DX: Z12.31 Encounter for screening mammogram for malignant neoplasm of breast (principal) | CPT/HCPCS: 77063; 77067 ==

== ENCOUNTER 2025-01-04 14:42 | Outpatient (REF) | payer OTHER, SELFPAY ==
--- OUTSIDE RECORDS SUMMARY | 2025-01-04 14:00 | XMS_ITS | Encounter Summary ---
Author Organization [employer] Address [address] [place] [id number] Care Team Providers Care Customer Agent Name Role Phone Logan Polanco MD Primary Care Provider [phone]- [phone] Reason for Referral * Consultation (Routine) - Pending Review Specialty Diagnoses / Procedures Referred By Vitor nunes Referred To Contact Gastroenterology Diagnoses Screening for colon cancer Logan Polanco MD [address] [place] [address] Phone: tel: fax: Referral ID Status Reason Start Date Expiration Date Visits Requested Visits Authorized [id number] Pending Review Specialty Services Required 5 01/04/2026 1 1 Reason for Visit * Reason Comments Annual Exam Encounter Details Date Type Department Care Team ([facility] st Contact Info) Description 01/04/2025 2:00 PM EST Office Visit [facility] MED & PEDS [address] [place] [address] Logan Polanco MD [address] [place] [address] Annual physical exam (Primary Dx); Dietary counseling; Exercise counseling; Class 3 severe obesity due to excess calories with serious comorbidity and body mass index (BMI) of 45.0 to 49.9 in adult (HCC); Nasal congestion; Screening for colon cancer; Encounter for immunization Social History Tobacco Use Types Packs/Day Years [...] AM EDT documented as of this encounter Last Filed Vital Signs Vital Sign Reading Time Taken Comments Blood Pressure 138/75 01/04/2025 1:58 PM EST Pulse 85 01/04/2025 1:58 PM EST Temperature 36.6 C (97.9 F) 01/04/2025 1:58 PM EST Respiratory Rate 20 01/04/2025 1:58 PM EST Oxygen Saturation 98% 01/04/2025 1:58 PM EST Inhaled Oxygen Concentration - - Weight 119 kg (262 lb) 01/04/2025 1:58 PM EST Height 155 cm (5' 1.02 ) 01/04/2025 1:58 PM EST Body Mass Index 49.47 01/04/2025 1:58 PM EST documented in this encounter Progress Notes * Logan Polanco MD - 01/04/2025 2:00 PM EST SUBJECTIVE Roselyn Davis is a 44 y.o. female who presents for Annual Exam. HPI Roselyn Davis, 44-year-old female - Nasal congestion and difficulty breathing at night since September 2024 - Sensation of plugged ears since September 2024 - Temporary relief with Aleve Sinus & Cold, symptoms recur - Nasal obstruction alternates sides during sleep - Family history of colon cancer (mother diagnosed around age 50) - Underwent colonoscopy approximately 3 years ago - Weight increased from 256 lbs (January 2024) to 262 lbs (December 2024) - Reports hot flashes and sleep difficulties - Menstrual periods irregular, occurring off and on - Denies having cattle dogs at home - Carpet present in bedroom Problem List[1] Allergies[2] Medications Ordered Prior to Encounter[3] Review of Systems Constitutional: Negative for activity change, appetite change, chills and diaphoresis. HENT: Negative for dental problem, drooling, ear discharge, ear pain and hearing loss. Eyes: Negative for pain, discharge and itching. Respiratory: Negative for cough, choking and chest tightness. Cardiovascular: Negative for chest pain and leg swelling. Gastrointestinal: Negative for blood in stool and diarrhea. Genitourinary: Negative for difficulty urinating, dyspareunia, dysuria, enuresis, flank pain, frequency and genital sores. Musculoskeletal: Negative for arthralgias, gait problem and joint swelling. Skin: Negative for pallor. Neurological: Negative for dizziness, seizures, speech difficulty, light- headedness and numbness. Psychiatric/Behavioral: Negative for behavioral problems, confusion and decreased concentration. OBJECTIVE Vitals: 01/04/25 1358 BP: 138/75 BP Location: Left arm Patient Position: Sitting BP Cuff Size: Adult long Pulse: 85 Resp: 20 Temp: 97.9 ??F (36.6 ??C) TempSrc: Oral SpO2: 98% Weight: 262 lb (119 kg) Height: 5' 1.02 (1.55 m) Physical Exam Constitutional: General: She is not in acute distress. Appearance: Normal appearance. She is obese. She is not ill-appearing, toxic- appearing or diaphoretic. HENT: Right Ear: Hearing, tympanic membrane, ear canal and external ear normal. Left Ear: Hearing, tympanic membrane, ear canal and external ear normal. Nose: No congestion or rhinorrhea. Cardiovascular: Rate and Rhythm: Normal rate. Heart sounds: No murmur heard. No friction rub. Pulmonary: Effort: Pulmonary effort is normal. Abdominal: General: Abdomen is flat. Musculoskeletal: General: Normal range of motion. Skin: General: Skin is warm. Neurological: General: No focal deficit present. Mental Status: She is alert. Psychiatric: Mood and Affect: Mood normal. Assessment/Plan Assessment/Plan Diagnoses and all orders for this visit: Annual physical exam - CBC auto differential; Future - Comprehensive Metabolic Panel; Future - Lipid Panel, Standard; Future - TSH with Reflex to Free T4; Future Dietary counseling Exercise counseling Class 3 severe obesity due to excess calories with serious comorbidity and body mass index (BMI) of45.0 to 49.9 in adult ([facility]) - CBC auto differential; Future - Comprehensive Metabolic Panel; Future - Lipid Panel, Standard; Future - TSH with Reflex to Free T4; Future - phentermine 15 MG capsule; Take 1 capsule (15 mg) by mouth before breakfast. - topiramate (Topamax) 50 MG tablet; Take 1 tablet (50 mg) by mouth Once per day. Dietary Recommendations: Fruits, vegetables, whole grains, protein foods, and fat-free or low-fat dairy products are healthychoices. Eat different types of protein foods in your diet. This can include seafood, lean meats, poultry, beans, peas, lentils, nuts, seeds, soy products, and eggs. Limit foods and beverages higher in added sugars, saturated fat, and sodium. Exercise Recommendations: At least 150 minutes of moderate-intensity physical activity per week, or an equivalent combinationof moderate- and vigorous-intensity activity Nasal congestion - fluticasone (Flonase) 50 MCG/ACT nasal spray; Administer 1-2 sprays into each nostril Once per day. Shake gently. Before first use, prime pump. After use, clean tip and replace cap. Screening for colon cancer - Referral to Gastroenterology; Future Encounter for immunization - FLU VACCINE TRIVALENT [id number] (Fluarix) 19 yrs + - TDAP VACCINE 7 yrs + Annual physical exam: - Ordered blood tests to check cholesterol and other labs. Weight and blood pressure to be monitored at follow-up in 1 month. Dietary counseling: - Discussed dietary modifications as part of weight management plan. Exercise counseling: - Recommended increased physical activity as part of weight management plan. Class 3 severe obesity due to excess calories with serious comorbidity and body mass index (BMI) of45.0 to 49.9 in adult ([facility]): - Severe obesity with BMI 45-49.9, weight increased from 256 lbs to 262 lbs since last visit. - Prescribed phentermine and topiramate combination therapy for weight loss. Advised to take medication in the morning. Scheduled follow-up in 1 month for weight and blood pressure monitoring. - Risks and side effects: Discussed potential for increased blood pressure, fatigue, and body aches. Advised to drink plenty of water. Nasal congestion: - Likely seasonal allergic rhinitis. - Prescribed Flonase. Advised to use high-efficiency vacuum delta system freight car cleaner or wash carpets, especially before winter. Remove carpet if possible. Screening for colon cancer: - Due for colon cancer screening. Family history of colon cancer in mother. - Will send reminder to hospital for colonoscopy scheduling. Encounter for immunization: - Due for influenza and tetanus vaccines. - Administered influenza and tetanus vaccines. - Risks and side effects: Discussed possible fatigue and body aches post-vaccination. Menopausal symptoms: - Perimenopausal symptoms with irregular menses, hot flashes, and sleep disturbance. - Discussed that treatment is available but can wait if symptoms are tolerable. [1] Patient Active Problem List Diagnosis Essential hypertension Microcytic anemia Microscopic hematuria Mild intermittent asthma Bony prominence Pain in both feet Intertrigo [2] Allergies Allergen Reactions Shrimp Flavor Agent (Non-Screening) Rash All shrimp produce [3] Current Outpatient Medications on File Prior to Visit Medication Sig Dispense Refill cholecalciferol (Vitamin D-3) 125 MCG (5000 UT) capsule Take 125 mcg by mouth in the morning. [facility] Gentle Laxative 5 MG EC tablet TAKE 2 TABLETS BY MOUTH ONCE DIRECTED PRIOR TO COLONOSCOPY diclofenac (Cataflam) 50 MG tablet TAKE 1 TABLET BY MOUTH 3 TIMES DAILY 90 tablet 0 Diclofenac Sodium 1 % gel To apply to the affected area 4 times a day 100 g 1 econazole nitrate 1 % cream Apply topically in the morning. 60 g 0 ferrous sulfate 325 (65 Fe) MG tablet TAKE 1 TABLET BY MOUTH EVERY OTHER DAY 45 tablet 1 Flovent HFA 110 MCG/ACT inhaler TAKE 2 PUFF BY INHALATION ROUTE 2 TIMES EVERY DAY FLUoxetine (PROzac) 10 MG capsule Take 10 mg by mouth in the morning. hydroCHLOROthiazide 12.5 MG tablet Take 1 tablet (12.5 mg) by mouth Once per day. 30 tablet 11 Mirena, 52 MG, 20 MCG/DAY intrauterine device mupirocin (Bactroban) 2 % ointment Apply topically 3 times daily. 60 g 0 Tirzepatide-Weight Management (Zepbound) 2.5 MG/0.5ML solution auto-injector Inject 0.5 mL (2.5 mg)under the skin 1 (one) time per week. 2 mL 1 Ventolin HFA 108 (90 Base) MCG/ACT inhaler INHALE 2 PUFFS BY MOUTH 4 TIMES A DAY NEEDED No current facility-administered medications on file prior to visit. documented in this encounter Plan of Treatment Upcoming Encounters Date Type Department Care Team ([facility] st Contact Info) Description 02/04/2025 4:00 PM EST Office Visit [facility] MED & PEDS [address] [place] [address] Logan Polanco MD [address] [place] [address] Scheduled Orders Name Type Priority Associated Diagnoses Orde r Schedule CBC auto differential Lab Routine Annual physical exam Class 3 severe obesity due to excess calories with serious comorbidity and body mass index (BMI) of 45.0 to 49.9 in adult ([facility]) Expected: 01/04/2025 (Approximate), Expires: 01/04/2026 Comprehensive Metabolic Panel Lab Routine Annual physical exam Class 3 severe obesity due to excess calories with serious comorbidity and body mass index (BMI) of 45.0 to 49.9 in adult ([facility]) Expected: 01/04/2025 (Approximate), Expires: 01/04/2026 Lipid Panel, Standard Lab Routine Annual physical exam Class 3 severe obesity due to excess calories with serious comorbidity and body mass index (BMI) of 45.0 to 49.9 in adult ([facility]) Expected: 01/04/2025 (Approximate), Expires: 01/04/2026 TSH with Reflex to Free T4 Lab Routine Annual physical exam Class 3 severe obesity due to excess calories with serious comorbidity and body mass index (BMI) of 45.0 to 49.9 in adult (HCC) Expected: 01/04/2025 (Approximate), Expires: 01/04/2026 Scheduled Referrals Name Type Priority Associated Diagnoses Order Schedule Referral to Gastroenterology Outpatient Referral Routine Screening for colon cancer Expected: 01/04/2025 (Approximate), Expires: 01/04/2026 documented as of this encounter Visit Diagnoses Diagnosis Annual physical exam- Primary Routine general medical examination at a health care facility Dietary counseling Dietary surveillance and counseling Exercise counseling Class 3 severe obesity due to excess calories with serious comorbidity and body mass index (BMI) of 45.0 to 49.9 in adult (HCC) Nasal congestion Other diseases of nasal cavity and sinuses Screening for colon cancer Special screening for malignant neoplasms, colon Encounter for immunization documented in this encounter Care Teams Customer Agent Relationship Specialty Start Date End Date Logan Polanco MD [address] [place] [id number] PCP - General Internal Medicine 02/14/18 documented as of this encounter
--- OUTSIDE RECORDS SUMMARY | 2025-01-04 14:58 | XMS_ITS | Clinical Summary ---
Author Organization 175 [facility] Address [address] [place] [address] Phone Care Team Providers Care Clinical Information Systems Director Name Role Phone Logan Polanco MD Primary Care Provider [phone] [phone] Allergies Active Allergy Reactions Criticality Noted Date [...] ONCE DIRECTED PRIOR TO COLONOSCOPY 2 Active Social History Tobacco Use Types Packs/Day Years [...] 05/31/2024 11:19 AM EDT Plan of Treatment Health Maintenance Due Date Last Done Comments Breast Cancer Screening 1980 Colorectal Cancer Screening: Colonoscopy 1979 Hepatitis B Vaccines (1 of 3 - 19+ 3-dose series) 1998 Pneumococcal Vaccine: Pediatrics (0 to 5 Years) and At-Risk Patients (6 to 49 Years) (1 of 2 - PCV) 1998 Cervical Cancer Screening: P ap Smear 2000 HPV Vaccines (1 - 3-dose SCD M series) 2006 DTaP,Tdap,and Td Vaccines (2 - Td or Tdap) 06/16/2022 06/16/2012 Cholesterol Screening (Lipid Panel) 02/06/2024 HIV Screening 02/06/2024 Hepatitis C Screening 02/06/2024 Social Influencers of Health Screening 02/06/2024 Depression Screening 02/15/2024 Hypertension/CHF/CAD Annual BMP Blood Test 03/07/2024 COVID-19 Vaccine (4 - 2024-2 6 season) 2024 02/17/2021, 05/30/2020, 04/30/2020 Influenza Vaccine (#1) 2024 7, 01/26/2013 RSV Immunization Adult Patients (1 - 1-dose 75+ series) 2054 HIB [...] patient's age to complete this topic Insurance [facility] Care Teams Clinical Information Systems Director Relationship Specialty Start Date End Date Logan Polanco MD [address] [place] [id number] PCP - General Internal Medicine 02/06/24
--- OUTSIDE RECORDS SUMMARY | 2025-01-04 14:58 | XMS_ITS | Patient Health Record ---
Author Organization [facility] Address [address] [place] [phone] Care Team Providers Care Superintendent Operating Name Role Phone NONE, NONE Primary Care Provider Omar Wasserman [phone] Reason For Referral No Information Plan Of Treatment No Information
--- OUTSIDE RECORDS SUMMARY | 2025-01-04 14:58 | XMS_ITS | Encounter Summary ---
Author Organization [employer] Address [address] [facility] [address] [place] [address] Care Team Providers Care Wealth Management Consultant Name Role Phone Logan Polanco MD Primary Care Provider [phone]- [phone] Encounter Details Date Type Department Care Team (Latest Contact Info) Description 01/04/2025 Travel Social History Tobacco Use Types Packs/Day Years [...] as of this encounter Plan of Treatment Upcoming Encounters Date Type Department Care Team ([facility] st Contact Info) Description 02/04/2025 4:00 PM EST Office Visit [facility] MED & PEDS [address] [place] [address] Logan Polanco MD [address] [place] [address] documented as of this encounter Visit Diagnoses Not on filedocumented in this encounter Care Teams Wealth Management Consultant Relationship Specialty Start Date End Date Logan Polanco MD [address] [place] [address] PCP - General Internal Medicine 02/14/18 documented as of this encounter
--- OUTSIDE RECORDS SUMMARY | 2025-01-04 14:58 | XMS_ITS | Encounter Summary ---
Author Organization [employer] Address [address] [facility] [address] [place] [address] Care Team Providers Care Director Of Medical Review Name Role Phone Logan Polanco MD Primary Care Provider [phone]- [phone] Encounter Details Date Type Department Care Team ([facility] st Contact Info) Description 02/06/2024 Orders Only [facility] CH[facility] MED & PEDS [address] [place] [address] Logan Polanco MD [address] [place] [address] Social History Tobacco Use Types Packs/Day Years [...] Care Team (Late st Contact Info) Description 02/04/2025 4:00 PM EST Office Visit [facility] MED & PEDS [address] [place] [address] Logan Polanco MD [address] [place] [address] documented as of this encounter Visit Diagnoses Not on filedocumented in this encounter Care Teams Director Of Medical Review Relationship Specialty Start Date End Date Logan Polanco MD [address] [place] [address] PCP - General Internal Medicine 02/14/18 documented as of this encounter
--- OUTSIDE RECORDS SUMMARY | 2025-01-04 14:58 | XMS_ITS | Encounter Summary ---
Author Organization [employer] [facility] Address [address] [place] [address] [address], [place] [address] Care Team Providers Care Ui Developer With Angular [employer] Name Role Phone Logan Polanco MD Primary Care Provider [phone]- [phone] Encounter Details Date Type Department Care Team (Late Contact Info) Description 08/31/2022 Orders Only [facility] MED & PEDS [address] [place] [address] Logan Polanco MD [address] [place] [address] Social History Tobacco Use Types Packs/Day Years [...] Description 02/04/2025 4:00 PM EST Office Visit [facility] MED & PEDS [address] [place] [address] Logan Polanco MD [address] [place] [address] documented as of this encounter Visit Diagnoses Not on filedocumented in this encounter Care Teams Ui Developer With Angular Js Relationship Specialty Start Date End Date Logan Ploanco MD [address] [place] [id number] PCP - General Internal Medicine 02/14/18 documented as of this encounter
--- OUTSIDE RECORDS SUMMARY | 2025-01-04 14:58 | XMS_ITS | Clinical Summary ---
Author Organization [employer] Address [address] [place] [address] Care Team Providers Care Ornamenter Hand Name Role Phone Logan Polanco MD Primary Care Provider [phone] Allergies Active Allergy Reactions Criticality Noted Date [...] in the morning. 60 g 4 Active Diclofenac Sodium 1 % gelIndications:B [...] (BMI) of 45.0 to 49.9 in adult ([facility]) Inject 0.5 mL (2.5 mg) under the skin 1 (one) time per week. 2 mL 1 4 Active diclofenac (Cataflam) 50 MG tablet TAKE 1 TABLET BY MOUTH 3 TIMES DAILY 90 tablet 5 Active phentermine 15 MG capsuleIndicatio ns:Class 3 severe obesity due to excess calories with serious comorbidity and body mass index (BMI) of 45.0 to 49.9 in adult ([facility]) Take 1 capsule (15 mg) by mouth before breakfast. 30 capsule 5 02/04/20 25 Active topiramate (Topamax) 50 MG tabletIndication s:Class 3 severe obesity due to excess calories with serious comorbidity and body mass index (BMI) of 45.0 to 49.9 in adult ([facility]) Take 1 tablet (50 mg) by mouth Once per day. 60 tablet 3 5 Active fluticasone (Flonase) 50 MCG/ACT nasal sprayIndications :Nasal congestion Administer 1-2 sprays into each nostril Once per day. Shake gently. Before first use, prime pump. After use, clean tip and replace cap. 16 g 2 5 01/05/20 26 Active Active Problems Problem Noted Date Diagnosed [...] to do her X-rays and f/u with [employer]. Recommended follow up with PCP. Relevant orders: -Diclofenac (Cataflam) 50 MG tablet Assessment & Plan (02/19/2022 10:23 AM EST): Acute on chronic issue already seen yesterday by armed security officer and reports she felt she wasn't being heard and that injection she had didn't help. She is tearful and reporting she has problems standing for prolonged periods of time given her bilateral feet pain more prominent in her R foot. Will need to get records from podiatry, please referral to new armed security officer. Recommended followup with PCP. Sent X rays and given letter for work. Also rx NSAIDs Essential hypertension 02/18/2022 Assessment & Plan (03/15/2023 11:02 AM EST): Elevated diastolic BP, recommended f/up PCP Microcytic anemia 01/16/2020 Microscopic hematuria 01/16/2020 Mild intermittent asthma 02/09/2017 Encounters Date Type Department Care Team Description 01/04/2025 2:00 PM EST Office Visit [facility] [address] [place] [address] Logan Polanco MD Annual physical exam (Primary Dx); Dietary counseling; Exercise counseling; Class 3 severe obesity due to excess calories with serious comorbidity and body mass index (BMI) of 45.0 to 49.9 in adult (HCC); Nasal congestion; Screening for colon cancer; Encounter for immunization 01/04/2025 Travel 12/27/2024 Patient Outreach [facility] [address] [place] [phone] Logan Polanco MD Pre-visit Planning (SDOH screening unable to complete) 12/07/2024 Telephone [facility] [address] [place] [phone] Logan Polanco MD Nurse Triage from Last 3 Months Immunizations Immunization Administration Dates Next Due Influenza injectable quadrivalent preservative f ree 02/09/2017 Influenza, Split (incl. purified surface antigen ) 01/26/2013 Influenza, seasonal, injectable, preservative fr ee 01/04/2025 Moderna Covid-19 Vaccine 12+ 04/30/2020 Tdap 01/04/2025,06/16/2012 Family History Medical History Relation Name Comments Colon cancer Mother Relation Name Status Comments Mother Social History Tobacco Use Types Packs/Day Years [...] Mass Index 49.47 01/04/2025 1:58 PM EST Plan of Treatment Upcoming Encounters Date Type Department Care Team ([facility] st Contact Info) Description 02/04/2025 4:00 PM EST Office Visit [facility] [address] [place], [place] [phone] Logan Polanco MD [address] [place], [place] [phone] Health Maintenance Due Date Last Done Comments CT Colonography 1979 Colonoscopy 1979 Colorectal Cancer Screening 1979 Depression Screening 1979 FIT DNA/Cologuard 1979 FIT 1979 FOBT 1979 HIV Screening 1979 Sigmoidoscopy 1979 Family Planning (PISQ) 1994 HPV Vaccines (1 - 3-dose series) 1994 Hepatitis C Screening 1997 Hepatitis B Vaccines (1 of 3 - 19+ 3-dose series) 1998 Pneumococcal Vaccine: Pediatrics (0 to 5 Years) and At-Risk Patients (6 to 49) Years (1 of 2 - PCV) 1998 SDOH Screening 09/21/2023 09/20/2022 Alcohol/Substance Use Screening 02/01/2025 02/02/2024 COVID-19 Vaccine ( season) 2026 02/17/2021, 05/30/2020, 04/30/2020 Postponed from 10/15/2024 (Patient Refused) Disability Screening 01/04/2026 01/04/2025 Tobacco Screening 01/04/2026 01/04/2025 Cervical Cancer Screening 04/21/2026 HPV/Cotest 04/21/2026 04/21/2021 Pap Smear 04/21/2026 04/21/2021 Lipid Panel 05/29/2026 05/29/2021, 05/29/2021 Mammogram 06/08/2026 06/08/2024, 04/14, 02/23/2022, Additional history exists Zoster Vaccines (1 of 2) 2029 DTaP/Tdap/Td Vaccines (3 - Td or Tdap) 01/04/2035 01/04/2025, 06/16/2012 RSV Patients and Patients Aged 60 years or older (1 - 1-dose 75+ series) 2054 Influenza Vaccine Completed 01/04/2025, , 01/26/2013 HIB Vaccines Aged Out No longer [...] Procedure Name Priority Date/Time Associated Diagnosis Comments BI MAMMOGRAM SCREENING TOMOSYNTHESIS BILATERAL Routine 06/08/2024 2:45 PM EDT ANNEMARIE HISTORICAL LIPID PANEL Routine 05/29/2021 7:16 AM EDT THINPREP IMAGING PAP AND HPV MRNA E6/E7 WITH REFLEX TO HPV 16,18/45 Routine 04/21/2021 3:57 PM EST from Last 3 Months or Most Recently Relevant to Health Maintenance Results * BI Mammogram Screening Tomosynthesis Bilateral (06/08/2024 2:45 PM EDT) Anatomical Region Laterality Modality Breast Bilateral Mammography 06/08/2024 2:45 PM EDT Narrative 06/16/2024 9:16 PM EDT [facility]'[address] [place] [address] Mammography Report Signed Patient: Roselyn Davis MR#: [id number] 7 : 1980 Acct:[id number] Age/Sex: 44 / F ADM Date: 06/08/24 Loc: HO.MAMMO Attending Dr: Logan Polanco MD Ordering Physician: Logan Polanco MD Results: 1 Negative Date of Service: 06/08/24 Follow Up: 1 Year From Orig inal Mammogram Procedure(s): MM tomosynthesis screening BI Accession Number(s): [id number] cc: Logan Polanco MD EXAMINATION: MM SCREENING DIGITAL BREAST TOMOSYNTHESIS, BILATERAL CLINICAL INFORMATION: Screening. Asymptomatic. COMPARISON: Mammography: Comparison is made with available priors TECHNIQUE: Digital breast mammography with tomosynthesis is performed in both the craniocaudal and mediolateral oblique views along with computer-aided detection (CAD). FINDINGS: There are scattered areas of fibroglandular [...] target due date for their next mammogram. Electronically signed by: Aida De DO 06/16/2024 09:13 PM EDT Dictated By: Aida De DO Signed By: <Electronically signed by Aida De DO in OV> 06/16/24 2113 DD/ 1445 TD/TT: 06/08/24 1504 Window Air Conditioner Installer: Procedure Note Donotuseinterpreter, Image - 06/16/[address] [place] [address] [place] [address] Mammography Report Signed Patient: Roselyn DavisMR#: [id number] 7 : 1980Acct:[id number] Age/Sex: 44 / FADM Date: 06/08/24 Loc: HO.MAMMO Attending Dr: Logan Polanco MD Ordering Physician: Logan Polanco MDResults: 1 Negative Date of Service: 06/08/24Follow Up: 1 Year From Orig inal Mammogram Procedure(s): MM tomosynthesis screening BI Accession Number(s): [id number] cc: Logan Polanco MD EXAMINATION: MM SCREENING DIGITAL BREAST TOMOSYNTHESIS, BILATERAL CLINICAL INFORMATION: Screening. Asymptomatic. COMPARISON: Mammography: Comparison is made with available priors TECHNIQUE: Digital breast mammography with tomosynthesis is performed in both the craniocaudal and mediolateral oblique views along with computer-aided detection (CAD). FINDINGS: There are scattered areas of fibroglandular [...] target due date for their next mammogram. Electronically signed by: Aida De DO 06/16/2024 09:13 PM EDT Dictated By: Aida De DO Signed By: <Electronically signed by Aida De DO in OV> 06/16/24 2113 DD/ 1445 TD/TT: 06/08/24 1504 Window Air Conditioner Installer: Logan Polanco MD IMG BI PROCEDURES Edited Re sult - Final * (ABNORMAL) LIPID PANEL (05/29/2021 7:16 AM EDT) Cholesterol 202 mg/dL [facility] Comment: Desirable Cholesterol: less than 200 mg/dL Borderline High Cholesterol: 200-239 mg/dL High Cholesterol: greater than 239 mg/dL HDL Cholesterol 43 mg/dL [facility] Comment: Desirable HDL: greater than 40 mg/dL Note: This HDL assay may give artificially low results in patients with liver disease. LDL Cholesterol Calculated 143 mg/dl [facility] Comment: Desirable LDL: less than 100 mg/dL Near Optimal/Above Optimal LDL: 110-129 mg/dL Borderline High LDL: 130-159 mg/dL High LDL: 160-189 mg/dL Very High LDL: greater than or equal to 190 mg/dL Triglycerides 83 mg/dL [facility] Comment: Desirable Triglyceride: less than 150 mg/dL Borderline High Triglyceride 150-199 mg/dL High Triglyceride: 200-499 mg/dL Very High Triglyceride: greater than or equal to 5OO mg/dL Iron 31 30 - 160 [...] Rate >60 [facility] Comment: NOTE: For -Albanian individuals, multiply the result by 1.210. Chronic Kidney Disease: Estimated GFR < 60 mL/min/1.73m2 Severe Kidney Disease: Estimated GFR < 15 mL/min/1.73m2 Glucose Random 96 60 - 115 mg/dL [facility] Potassium 4.5 3.3 - 5.1 mmol/L [facility] Sodium 137 135 - 145 mmol/L [facility] C Reactive Protein 0.47 < or = 0.50 mg/dL [facility] 05/29/2021 7:16 AM EDT us Historical Provider HISTORICAL/NON ORDERABLE LABS Final Result [facility] [address] * THINPREP TIS PAP AND HPV mRNA E6/E7 WITH REFLEX TO HPV 16,18/45 (04/21/2021 3:57 PM EST) Clinical Information: None given [facility] COMMENT SEE COMMENT [facility] Comment: EXPLANATORY NOTE: The Pap is a screening test for cervical cancer. It is not a diagnostic test and is subject to false negative and false positive results. It is most reliable when a satisfactory sample, regularly obtained, is submitted with relevant clinical findings and history, and when the Pap result is evaluated along with historic and current clinical information. COMMENT: This Pap test has been evaluated with computer assisted technology. [facility] Dental Patient Coordinator: SEE COMMENT [facility] Comment: YP, CT(ASCP) CT screening location: [place] [address] HPV nRNA E6/E7 Not Detected Not Detected [facility] Comment: Methodology: Analysis Analyst-Mediated Amplification This assay detects E6/E7 viral messenger RNA (mRNA) from 14 high-risk HPV types (16,18,31,33,35,39,45,51,52,56,58,59,66,68). The analytical performance characteristics of this assay have been determined by [employer]. The modifications have not been cleared or approved by the FDA. This assay has been validated pursuant to the CLIA regulations and is used for clinical purposes. For additional information, please refer to http://education.Heartbeat.[employer]/faq/WJL026q9 (This link if provided for information/ educational purposes only.) Interpretation/Re sult: Negative for intraepithelial lesion or malignancy. [facility] LMP: 03/26/2021 [facility] Prev. BX: NONE GIVEN [facility] Prev. PAP: 2016 NIL [facility] SOURCE: Cervix [facility] Statement Of Adequacy: SEE COMMENT [facility] Comment: Satisfactory for evaluation. Endocervical/transformation zone component absent. 04/21/2021 3:57 PM EST Radha DIAS LAB PATHOLOGY ORDERABLES Final Result [facility] [address] from Last 3 Months or Most Recently Relevant to Health Maintenance Insurance , [address] [place] [address] Care Teams Ornamenter Hand Relationship Specialty Start Date End Date Logan Polanco MD [address] [place] [address] PCP - General Internal Medicine 02/14/18
--- OUTSIDE RECORDS SUMMARY | 2025-01-04 14:58 | XMS_ITS | Encounter Summary ---
Author Organization [employer] [facility] Address [address] [place] [id number] Care Team Providers Care Professor Of Environmental Engineering Name Role Phone Logan Polanco MD Primary Care Provider [phone] Reason for Visit * Reason Comments Med Change Request Encounter Details Date Type Department Care Team (Late Contact Info) Description 07/09/2022 Refill [facility] [address] [place] [address] Logan Polanco MD [address] [place] [address] Social History Tobacco Use Types Packs/Day Years [...] Encounters Date Type Department Care Team (Late Contact Info) Description 02/04/2025 4:00 PM EST Office Visit [facility] [address] [place] [address] Logan Polanco MD [address] [place], [place] [phone] documented as of this encounter Visit Diagnoses Not on filedocumented in this encounter Care Teams Professor Of Environmental Engineering Relationship Specialty Start Date End Date Logan Polanco MD [address] [place] [phone] PCP - General Internal Medicine 02/14/18 documented as of this encounter
[2025-01-04 18:33] LABS: MANUAL DIFF FLAG NO
[2025-01-04 18:40] LABS: Hematocrit 38.5 % (37.0-47.0); Hemoglobin 11.9 g/dl (12.0-16.0); Imm Gran Abs Auto 0.04 X10*3/uL (0.00-0.03); Imm Gran Pct Auto 0.5 % (0.0-0.4); Lymphocytes Absolute Auto 2.0 X10*3/uL (1.2-4.9); Mean Corpuscular HGB Conc 30.9 g/dl (31.0-35.0); Mean Corpuscular Hemoglobin 25.2 pg (27.0-33.0); Mean Corpuscular Volume 81.6 fL (80.0-98.0); NRBC Abs Auto 0.000 X10*3/uL (0.0-0.012); NRBC Pct Auto 0.0 /100WBC (0.0-0.2); Platelet Count 404 X10*3/uL (160-400); Red Blood Count 4.72 X10*6/uL (4.20-5.50); White Blood Count 8.7 X10*3/uL (4.8-10.8)
[2025-01-04 19:03] LABS: Alanine Aminotransferase 25 U/L (0-31); Albumin Level 4.2 g/dL (3.5-5.0); Alkaline Phosphatase 98 U/L (39-117); Anion Gap 10 (12-20); Aspartate Amino Transferase 31 U/L (5-31); Blood Urea Nitrogen 14 mg/dL (9-16); Calcium 8.8 mg/dL (8.4-10.2); Carbon Dioxide 26 mmol/L (22-29); Chloride 109 mmol/L (96-108); Cholesterol 228 mg/dL (<200); Estimated Glomerular Filt Rate > 60; HDL Cholesterol 42 mg/dL (>40); Potassium 3.8 mmol/L (3.3-5.1); Sodium 141 mmol/L (135-145); Total Protein 7.4 g/dL (6.5-8.0); Triglycerides 199 mg/dL (<150)
== END 2025-01-04 14:43 | disposition home or self-care (01) ==
LOC: HO.CHCLDS 14:42
PROVIDERS: Visit Provider Internal Medicine
DX: Z00.00 Encounter for general adult medical examination without abnormal findings (principal); E66.813 Obesity, class 3; Z68.42 Body mass index [BMI] 45.0-49.9, adult; Z13.29 Encounter for screening for other suspected endocrine disorder
CPT/HCPCS: 36415; 80053; 80061; 84443; 85025